=== PATIENT | female | born 1945 | race African-American/Black ===

== ENCOUNTER 2018-06-10 16:06 | Inpatient (IN) ==
--- NOTE | 2018-06-10 16:32 | ED ---
HPI General Chief Complaint: Shortness of Breath/Dyspnea Stated Complaint: SOB x 5 days Time Seen by Provider: 06/10/18 16:24 History of Present Illness 73-year-old woman sent over from her primary care physician's office with history of progressive shortness of breath over the past 5 days, and was found to be significantly hypoxemic at 83% oxygen saturation at the office. She was given 2 rounds of nebulized albuterol, with modest temporary improvement, and with the addition of supplemental oxygen, was able to obtain oxygen saturation of 97%. However once patient was taken off of oxygen, she consistently desaturated to the 89-90% range, at which time they felt that she needed further and more intensive care, and referred her to this emergency department. I spoke with Dr. Stefan Chahal, patient's primary care physician, who gave significant history, with concern for history of possible DVT, but with underlying history of diabetes mellitus, hypertension, past history of asthma, but no acute exacerbations in at least 10 years. Patient is a non-smoker. She has not had any fever chills or diaphoresis. And she has not had any chest pain. On arrival in the emergency department, patient is able to speak fairly well, with short sentences, but appears to have some moderate effort at breathing in any case. She felt that she is more comfortable than before, but also felt like she wished that she could breathe better, but declined offer for immediate nebulized DuoNeb treatment. Related Data Home Medications Medication Instructions Recorded Confirmed Aspirin Low Dose 81 mg PO DAILY 06/10/18 06/10/18 Calcium 600 1 tab PO DAILY 06/10/18 06/10/18 Vitamin B-12 1,000 mcg PO DAILY 06/10/18 06/10/18 ascorbic acid (vitamin C) [Vitamin 1 tab PO DAILY 06/10/18 06/10/18 C] atorvastatin 1 tab PO DAILY 06/10/18 06/10/18 celecoxib 1 cap PO DAILY 06/10/18 06/10/18 losartan 1 tab PO DAILY 06/10/18 06/10/18 metformin 1 tab PO BID 06/10/18 06/10/18 metoprolol succinate 1 tab PO DAILY 06/10/18 06/10/18 multivitamin 1 tab PO DAILY 06/10/18 06/10/18 hospi-0b-rqg-epa-fish oil [[place]-3 1 cap PO DAILY 06/10/18 06/10/18 Fish Oil] omeprazole 1 cap PO DAILY 06/10/18 06/10/18 sertraline 1 tab PO BID 06/10/18 06/10/18 trazodone 1 tab PO HS PRN 06/10/18 06/10/18 zinc 1 tab PO DAILY 06/10/18 06/10/18 Allergies Allergy/AdvReac Type Severity Reaction Status Date / Time doxycycline Allergy Severe RESPIRIATORY Unverified 02/12/17 18:26 ARREST minocycline Allergy Severe RESPIRIATORY Unverified 02/12/17 18:26 ARREST tigecycline Allergy Severe RESPIRIATORY Unverified 02/12/17 18:26 ARREST codeine Allergy Unknown Unverified 02/12/17 18:26 erythromycin base Allergy Unknown Unverified 02/12/17 18:26 Sulfa (Sulfonamide Allergy Unknown Unverified 02/12/17 18:26 Antibiotics) Review of Systems Constitutional Denies body ache(s), Denies chills, Reports fatigue, Denies fever(s), Denies lethargy, Reports malaise and Denies night sweats Cardiovascular Denies chest pain Respiratory Denies hemoptysis, Reports dyspnea and Reports wheezing Gastrointestinal Denies abdominal pain, Denies nausea and Denies vomiting Musculoskeletal Denies myalgias and Denies muscle weakness PMFSH Medical History Medical History Anxiety (Acute) Asthma (Acute) Diabetes (Acute) H/O: hysterectomy (Acute) High cholesterol (Acute) Hypertension (Acute) Insomnia (Acute) Social History Social History Substance History: No History of Abuse Smoking Status: Never smoker How Often Do You Have a Drink Containing Alcohol: Never Immunization History Tetanus Immunization: <5 Years Exam Narrative Exam Narrative: GENERAL: Elderly adult female, mildly tachypneic, speaks full sentences, but still shows some respiratory effort. She is on 4 L of oxygen by nasal cannula, and this gives an oxygen saturation of 90%. Vital signs are stable otherwise. SKIN: Focused skin assessment warm/dry. HEAD: Atraumatic. Normocephalic. EYES: Pupils equal and round. No scleral icterus. No injection or drainage. ENT: No nasal bleeding or discharge. Mucous membranes pink and moist. NECK: Trachea midline. No JVD. CHEST: Nontender, no bony crepitus. CARDIOVASCULAR: Regular rate and rhythm. No murmur appreciated. RESPIRATORY: No accessory muscle use. Moderate respiratory impairment, but few audible wheezes or rhonchi.. Breath sounds equal bilaterally. GASTROINTESTINAL: Abdomen soft, non-tender, nondistended. Hepatic and splenic margins not palpable. MUSCULOSKELETAL: No obvious deformities. No clubbing. No cyanosis. No edema. NEUROLOGICAL: Awake and alert. No obvious cranial nerve deficits. Motor grossly within normal limits. Normal speech. PSYCHIATRIC: Appropriate mood and affect; insight and judgment normal. Course Initial Documented Vital Signs Pulse Rate 82 06/10/18 16:24 Pulse Oximetry 98 06/10/18 16:24 Last Documented Vital Signs Pulse Rate 77 06/10/18 17:55 Respiratory Rate 22 06/10/18 17:55 Blood Pressure 180/91 H 06/10/18 17:55 Pulse Oximetry 98 06/10/18 17:55 Medical Decision Making MDM Narrative Medical decision making narrative: Patient comes in with shortness of breath for several days, with unresponsiveness to outpatient treatment at her primary care physician's office with a couple of rounds of nebulized treatments, showing an initial hypoxemia of approximately 84-85% in the office, improving to the mid 90s after DuoNeb treatments, but gradually declining again afterwards , with resumption of shortness of breath. She was sent for possible evaluation of pulmonary embolism, but this was negative on evaluation here today, but does show right upper lobe and right lower lobe interstitial densities, compatible with an acute pneumonitis, and she also has mild cardiomegaly with a borderline elevated BNP level, with possible fluid retention as well. Patient was given bronchodilator treatment with DuoNeb in the emergency department, as well as initial dose of diuresis, and despite feeling better after these treatments, when she was placed again as a trial on room air, she again promptly desaturates to the 86-88 range. Patient will need hospitalization for continued pulmonary treatment, and empiric antibiotic therapy for likely interstitial pneumonitis or community-acquired pneumonia. Medical Screen Exam Complete: Yes Emergency Medical Condition: Yes Lab Data Result diagrams: 06/10/18 16:40 06/10/18 16:40 Lab Results 06/10/18 06/10/18 06/10/18 Range/Units 16:40 16:40 16:40 CBC w Diff Auto diff final WBC 7.2 (4.0-11.0) th/mm3 RBC 3.41 L (4.00-5.30) mil/mm3 Hgb 10.4 L (11.6-15.3) gm/dL Hct 32.4 L (35.0-46.0) % MCV 95.1 (80.0-100.0) fL MCH 30.4 (27.0-34.0) pg MCHC 32.0 (32.0-36.0) % RDW 14.9 (11.6-17.2) % Plt Count 215 (150-450) th/mm3 MPV 8.4 (7.0-11.0) fL Neut % (Auto) 74.9 H (16.0-70.0) % Lymph % (Auto) 13.0 (9.0-44.0) % [place] % (Auto) 9.8 H (0.0-8.0) % Eos % (Auto) 1.9 (0.0-4.0) % Baso % (Auto) 0.4 (0.0-2.0) % Neut # (Auto) 5.5 (1.8-7.7) th/mm3 Lymph # (Auto) 0.9 L (1.0-4.8) th/mm3 [place] # (Auto) 0.7 (0.0-0.9) th/mm3 Eos # (Auto) 0.1 (0.0-0.4) th/mm3 Baso # (Auto) 0.0 (0.0-0.2) th/mm3 WBC Differential . Differential Comment . D-Dimer Quant (PE/DVT) (0.00-0.50) mg/L FEU Sodium 142 (136-145) meq/L Potassium 3.6 (3.5-5.1) meq/L Chloride 103 (98-107) meq/L Carbon Dioxide 32.8 H (21.0-32.0) meq/L Anion Gap 6 (5-15) meq/L BUN 18 (7-18) mg/dL Creatinine 0.71 (0.50-1.00) mg/dL Estimated GFR Greater than 89 (>89) mL/min Random Glucose 106 (74-106) mg/dL Calcium 8.1 L (8.5-10.1) mg/dL Total Bilirubin 0.5 (0.2-1.0) mg/dL AST 40 H (15-37) U/L ALT 53 (10-53) U/L Alkaline Phosphatase 70 (45-117) U/L Troponin I 0.03 (0.02-0.05) ng/mL B-Natriuretic Peptide 393 H (0-100) pg/mL Total Protein 6.5 (6.4-8.2) g/dL Albumin 3.3 L (3.4-5.0) g/dL 06/10/18 Range/Units 17:00 CBC w Diff WBC (4.0-11.0) th/mm3 RBC (4.00-5.30) mil/mm3 Hgb (11.6-15.3) gm/dL Hct (35.0-46.0) % MCV (80.0-100.0) fL MCH (27.0-34.0) pg MCHC (32.0-36.0) % RDW (11.6-17.2) % Plt Count (150-450) th/mm3 MPV (7.0-11.0) fL Neut % (Auto) (16.0-70.0) % Lymph % (Auto) (9.0-44.0) % [place] % (Auto) (0.0-8.0) % Eos % (Auto) (0.0-4.0) % Baso % (Auto) (0.0-2.0) % Neut # (Auto) (1.8-7.7) th/mm3 Lymph # (Auto) (1.0-4.8) th/mm3 [place] # (Auto) (0.0-0.9) th/mm3 Eos # (Auto) (0.0-0.4) th/mm3 Baso # (Auto) (0.0-0.2) th/mm3 WBC Differential Differential Comment D-Dimer Quant (PE/DVT) 1.04 H (0.00-0.50) mg/L FEU Sodium (136-145) meq/L Potassium (3.5-5.1) meq/L Chloride (98-107) meq/L Carbon Dioxide (21.0-32.0) meq/L Anion Gap (5-15) meq/L BUN (7-18) mg/dL Creatinine (0.50-1.00) mg/dL Estimated GFR (>89) mL/min Random Glucose (74-106) mg/dL Calcium (8.5-10.1) mg/dL Total Bilirubin (0.2-1.0) mg/dL AST (15-37) U/L ALT (10-53) U/L Alkaline Phosphatase (45-117) U/L Troponin I (0.02-0.05) ng/mL B-Natriuretic Peptide (0-100) pg/mL Total Protein (6.4-8.2) g/dL Albumin (3.4-5.0) g/dL Imaging Data Radiologist's impression: Chest X-Ray 06/10/18 16:24 CONCLUSION: Apical lordotic examination with apparent mild cardiomegaly and no definite pulmonary edema. Chest CTA 06/10/18 17:57 CONCLUSION: 1. Scattered groundglass densities likely air trapping. 2. Scattered peripheral parenchymal densities in the right lung could be infectious or inflammatory. 3. No evidence for pulmonary embolism. 4. Mild prominence of the main pulmonary trunk suggests a degree of pulmonary hypertension. 5. Subcentimeter nodules the largest right lower lobe measures 7 mm. Follow-up CT chest in 3 months recommended for stability. ECG Data Attestation: I personally reviewed and interpreted this ECG as follows: Interpretation: EKG taken at 1634 hrs. Baseline rhythm is sinus at 74 bpm, no ectopy is noted. QRS morphology is unremarkable, possibly borderline nonspecific intraventricular conduction delay, QRS interval is [address] segments are generally flat, and T waves are also generally flat, but there are no acute elevations or depressions compatible with myocardial infarction or ischemia, and no T wave inversions. IL interval is normal at 141 ms, QT interval is normal at 388 ms corrected. There are peaked P waves, suggestive of left atrial enlargement. This is an abnormal but generally nonspecific tracing. Discharge Plan Discharge Order Discharge Orders: ED Use Only Admit Order (Routine); Ordered 06/10/18 Ordered By: Mack Goldstein Physicians Team ED Provider: Mack Goldstein Primary Care Provider: Vitor Schultz Rxs /Orders / Referrals /Forms Prescriptions: No Action Aspirin Low Dose 81 mg PO DAILY RF: 0 celecoxib 200 mg Capsule 1 cap PO DAILY RF: 0 trazodone 50 mg Tablet 1 tab PO HS PRN (Reason: Insomnia) RF: 0 metoprolol succinate 50 mg Tablet Extended Release 24 Hr 1 tab PO DAILY RF: 0 ascorbic acid (vitamin C) [Vitamin C] 500 mg Tablet 1 tab PO DAILY RF: 0 metformin 1,000 mg Tablet 1 tab PO BID RF: 0 losartan 25 mg Tablet 1 tab PO DAILY RF: 0 sertraline 25 mg Tablet 1 tab PO BID RF: 0 omeprazole 20 mg Capsule,Delayed Release(Dr/Ec) 1 cap PO DAILY RF: 0 zinc 50 mg Tablet 1 tab PO DAILY RF: 0 xhoac-0q-rfp-epa-fish oil [[place]-3 Fish Oil] 300-1,000 mg Capsule 1 cap PO DAILY RF: 0 Calcium 600 1 tab PO DAILY RF: 0 Vitamin B-12 1,000 mcg PO DAILY RF: 0 atorvastatin 1 tab PO DAILY RF: 0 multivitamin 1 tab PO DAILY RF: 0 Discharge Interventions Interventions: Vital Signs Last Done: 06/10/18 19:43 Status ED Status: With Doctor
[2018-06-10 16:53] LABS: Baso % (Auto) 0.4 % (0.0-2.0); Eos # (Auto) 0.1 th/mm3 (0.0-0.4); Eos % (Auto) 1.9 % (0.0-4.0); Hematocrit 32.4 % (35.0-46.0); Hemoglobin 10.4 gm/dL (11.6-15.3); Lymph # (Auto) 0.9 th/mm3 (1.0-4.8); Mean Corpuscular Hemoglobin 30.4 pg (27.0-34.0); Mean Corpuscular Volume 95.1 fL (80.0-100.0); Mean Platelet Volume 8.4 fL (7.0-11.0); Mono # (Auto) 0.7 th/mm3 (0.0-0.9); Mono % (Auto) 9.8 % (0.0-8.0); Neut # (Auto) 5.5 th/mm3 (1.8-7.7); Neut % (Auto) 74.9 % (16.0-70.0); Platelet Count 215 th/mm3 (150-450); Red Blood Count 3.41 mil/mm3 (4.00-5.30); Red Cell Distribution Width 14.9 % (11.6-17.2); White Blood Count 7.2 th/mm3 (4.0-11.0)
[2018-06-10 16:58] LABS: Chloride 103 meq/L (98-107); Potassium 3.6 meq/L (3.5-5.1); Sodium 142 meq/L (136-145)
[2018-06-10 17:01] LABS: Albumin 3.3 g/dL (3.4-5.0); Anion Gap 6 meq/L (5-15); Blood Urea Nitrogen 18 mg/dL (7-18); Calcium 8.1 mg/dL (8.5-10.1); Carbon Dioxide 32.8 meq/L (21.0-32.0); Glucose,Random 106 mg/dL (74-106)
[2018-06-10 17:04] LABS: Alanine Aminotransferase 53 U/L (10-53); Aspartate Aminotransferase 40 U/L (15-37); Glomerular Filtration Rate Greater Than 89 mL/min (>89)
--- NOTE | 2018-06-10 17:05 | XR ---
EXAM DATE: 06/10/2018 5:00 PM EST AGE/SEX: 73 years / Female INDICATIONS: Shortness of breath. CLINICAL DATA: This is the patient's initial encounter. Patient reports that signs and symptoms have been present for 4 - 6 days and indicates a pain score of 1/10. MEDICAL/SURGICAL HISTORY: None. None. COMPARISON: No prior exams available for comparison. FINDINGS: A single AP view of the chest demonstrates the lungs to be symmetrically aerated without evidence of mass, infiltrate or effusion. The heart size appears mildly prominent. There is no perihilar edema. This study is apical lordotic in technique. Osseous structures are intact. CONCLUSION: Apical lordotic examination with apparent mild cardiomegaly and no definite pulmonary edema. Electronically signed by: Portillo Vera MD 06/10/2018 5:04 PM EST
[2018-06-10 17:06] LABS: Total Protein 6.5 g/dL (6.4-8.2)
[2018-06-10 17:07] LABS: Alkaline Phosphatase 70 U/L (45-117)
[2018-06-10 17:09] LABS: Troponin I 0.03 ng/mL (0.02-0.05)
--- NOTE | 2018-06-10 18:50 | CT ---
EXAM DATE: 06/10/2018 6:38 PM EST AGE/SEX: 73 years / Female INDICATIONS: Short of breath. CLINICAL DATA: This is the patient's initial encounter. Patient reports that signs and symptoms have been present for 4 - 6 days and indicates a pain score of 0/10. MEDICAL/SURGICAL HISTORY: Diabetes. Hypercholesterolemia. Hypertension. Hysterectomy. RADIATION DOSE: 21.61 CTDI (mGy) ; Patient body habitus COMPARISON: No prior exams available for comparison. TECHNIQUE: Volumetric scanning was performed using a multi-row detector CT scanner during bolus infu nicol of 65 ml Omnipaque 350 (iohexol) nonionic water-soluble contrast as a single exam dose. The yousif a was post processed with a variety of visualization algorithms including full volume maximum intensi ty projection and sliding thin slab reformation. Using automated exposure control and adjustment of t he mA and/or kV according to patient size, radiation dose was kept as low as reasonably achievable to obtain optimal diagnostic quality images. DICOM format image data is available electronically for r eview and comparison. FINDINGS: Pulmonary Arteries: No filling defects are seen in the pulmonary arteries out to the subsegmental ve ssels. The left and right pulmonary arteries are normal in diameter. Pulmonary trunk is prominent. Lung: Scattered groundglass densities and patchy peripheral densities are seen in the right upper lo be and right lower lobe. Discoid atelectasis left lower lobe. There are some nodular patchy densities including nodule in the right lower lobe measuring 7 mm.. Effusion: None. Mediastinum: No evidence of mediastinal or hilar adenopathy. Other: The axilla is unremarkable. CONCLUSION: 1. Scattered groundglass densities likely air trapping. 2. Scattered peripheral parenchymal densities in the right lung could be infectious or inflammatory. 3. No evidence for pulmonary embolism. 4. Mild prominence of the main pulmonary trunk suggests a degree of pulmonary hypertension. 5. Subcentimeter nodules the largest right lower lobe measures 7 mm. Follow-up CT chest in 3 months recommended for stability. Electronically signed by: Herb Ashley MD 06/10/2018 6:48 PM EST
[2018-06-10] MEDS ORDERED: Azithromycin 250 MG Tablet PO ONE (19:45)
[2018-06-10] MEDS ORDERED: Dextrose 50% in Water 50 ML Vial IV.PUSH PRN (20:27)
[2018-06-10] MEDS ORDERED: ALPRAZolam 0.25 MG Tablet PO PRN (21:00)
[2018-06-10] MEDS: Insulin NovoLOG Aspart Correctional Sugar Inj SQ SCH (21:31)
[2018-06-10] MEDS ORDERED: Bisacodyl 10 MG Supp RECTAL PRN (22:00)
[2018-06-10 22:03] LABS: Troponin I 0.02 ng/mL (0.02-0.05)
[2018-06-10] MEDS: Senna/Docusate Sodium 8.6/50 MG Tablet PO SCH (22:46)
[2018-06-10] MEDS: Enoxaparin Inj 40 MG/0.4 ML Syringe SQ SCH (22:46)
[2018-06-11 04:59] LABS: Troponin I 0.02 ng/mL (0.02-0.05)
[2018-06-11 06:55] LABS: Chloride 100 meq/L (98-107); Potassium 3.3 meq/L (3.5-5.1); Sodium 141 meq/L (136-145)
[2018-06-11 07:03] LABS: Albumin 3.6 g/dL (3.4-5.0); Anion Gap 6 meq/L (5-15); Carbon Dioxide 34.9 meq/L (21.0-32.0); Glucose,Random 113 mg/dL (74-106); Magnesium 1.7 mg/dL (1.5-2.5)
[2018-06-11 07:04] LABS: Blood Urea Nitrogen 15 mg/dL (7-18)
[2018-06-11 07:06] LABS: Aspartate Aminotransferase 33 U/L (15-37)
[2018-06-11 07:07] LABS: Alanine Aminotransferase 51 U/L (10-53); Glomerular Filtration Rate 86 mL/min (>89); Total Protein 7.1 g/dL (6.4-8.2)
[2018-06-11 07:08] LABS: Alkaline Phosphatase 74 U/L (45-117)
--- NOTE | 2018-06-11 07:53 | P.CONCA ---
History of Present Illness Service: cardiology Primary Care Provider: Vitor Schultz MD History of Present Illness: 73-year-old female with HTN, DM who was sent from PCPs office for hypoxia. The patient presented to her primary care doctor's office yesterday with 5 days of shortness of breath and dry cough. She is found to be significantly hypoxic with improvement with duo nebs and O2. She was sent to the ED for further evaluation. Chest CT showed no PE, but infectious versus inflammatory changes in the right lung. The patient reports occasional heart racing sensation and near syncope sensation associated with shortness of breath, no passing out. She denies any chest pain. Approximately 2300 the patient had a 7 beat run of nonsustained V. tach. Otherwise telemetry monitoring shows frequent PVCs in singles and one episode of trigeminy. She is on metoprolol at home for blood pressure. Overall she reports her breathing is improving with treatment. Review of Systems All other systems reviewed negative except as stated in HPI [facility] - History History Provided By: Patient, Medical Record - Medical History Medical History: Medical History (Last Updated 06/10/18 @ 16:25 by Leana Francois RN) Anxiety Asthma Diabetes H/O: hysterectomy High cholesterol Hypertension Insomnia - Tobacco History Second Hand Smoke Exposure: No Smoking Status: Never smoker - Alcohol History How Often Do You Have a Drink Containing Alcohol: Never - Substance Use History Substance History: No History of Abuse - Immunization History Tetanus Immunization: <5 Years Medications and Allergies Allergies Allergy/AdvReac Type Severity Reaction Status Date / Time doxycycline Allergy Severe RESPIRIATORY Verified 06/10/18 20:12 ARREST minocycline Allergy Severe RESPIRIATORY Verified 06/10/18 20:12 ARREST tigecycline Allergy Severe RESPIRIATORY Verified 06/10/18 20:12 ARREST codeine Allergy Unknown Rash Verified 06/10/18 20:12 erythromycin base Allergy Unknown Rash Verified 06/10/18 20:12 Sulfa (Sulfonamide Allergy Unknown Rash Verified 06/10/18 20:12 Antibiotics) Home Medications Medication Instructions Recorded Confirmed Type Aspirin Low Dose 81 mg PO DAILY 06/10/18 06/10/18 History Calcium 600 1 tab PO DAILY 06/10/18 06/10/18 History Vitamin B-12 1,000 mcg PO DAILY 06/10/18 06/10/18 History ascorbic acid (vitamin C) [Vitamin 1 tab PO DAILY 06/10/18 06/10/18 History C] atorvastatin 1 tab PO DAILY 06/10/18 06/10/18 History celecoxib 1 cap PO DAILY 06/10/18 06/10/18 History losartan 1 tab PO DAILY 06/10/18 06/10/18 History metformin 1 tab PO BID 06/10/18 06/10/18 History metoprolol succinate 1 tab PO DAILY 06/10/18 06/10/18 History multivitamin 1 tab PO DAILY 06/10/18 06/10/18 History gaezi-0b-qyo-epa-fish oil [[place]-3 1 cap PO DAILY 06/10/18 06/10/18 History Fish Oil] omeprazole 1 cap PO DAILY 06/10/18 06/10/18 History sertraline 1 tab PO BID 06/10/18 06/10/18 History trazodone 1 tab PO HS PRN 06/10/18 06/10/18 History zinc 1 tab PO DAILY 06/10/18 06/10/18 History Active Medications: Active Medications Acetaminophen (Tylenol) 650 mg PO Q4H PRN PRN Reason: Temp > 100.4 Al Hydroxide/Mg Hydroxide (Milk Of Murali Tripathi) 30 ml PO Q12H PRN PRN Reason: Mild Constipation Albuterol (Albuterol Neb (Anjelica)) 2.5 mg NEB Q6HR NEB ANJELICA Last Admin: 06/11/18 02:48 Dose: 2.5 mg Alprazolam (Xanax) 0.25 mg PO ONCE PRN PRN Reason: ANXIETY AND/OR INSOMNIA Stop: 06/11/18 23:59 Bisacodyl (Dulcolax Supp) 10 mg RECTAL DAILY PRN PRN Reason: SEVERE CONSITIPATION Dextrose (D50w Vial) 50 ml IV.PUSH UNSCH PRN PRN Reason: PER HYPOGLYCEMIA PROTOCOL Enalaprilat (Vasotec Inj) 1.25 mg IV.PUSH Q6H PRN PRN Reason: HYPERTENSION Enoxaparin Sodium (Lovenox Inj) 40 mg SQ Q24H ANJELICA Last Admin: 06/10/18 22:46 Dose: 40 mg Glucagon (Glucagon Inj) 1 mg OTHER PRN PRN PRN Reason: for Hypoglycemia Protocol Insulin Aspart (Novolog Insulin [employer] Sugar Inj) 0 unit SQ ACHS ANJELICA; Protocol Last Admin: 06/10/18 21:31 Dose: 1 unit Lactulose (Lactulose Liq) 30 ml PO DAILY PRN PRN Reason: SEVERE CONSITIPATION Ondansetron HCl (Zofran Inj) 4 mg IV.PUSH Q6H PRN PRN Reason: NAUSEA OR VOMITING Last Admin: 06/11/18 04:02 Dose: 4 mg Senna/Docusate Sodium (Yazmin-Colace) 1 tab PO BID [facility] Last Admin: 06/10/18 22:46 Dose: 1 tab Sennosides (Senokot) 17.2 mg PO Q12H PRN PRN Reason: Moderate Constipation Sodium Chloride (Ns Flush) 2 ml IV.FLUSH PRN PRN PRN Reason: FLUSH AFTER USING IV ACCESS Last Admin: 06/11/18 04:02 Dose: 2 ml Sodium Chloride (Ns Flush) 2 ml IV.FLUSH BID [facility] Last Admin: 06/10/18 22:46 Dose: 2 ml Sodium Chloride (Ns Flush) 2 ml IV.FLUSH PRN PRN PRN Reason: FLUSH AFTER USING IV ACCESS Exam Vital signs: Vital Signs 06/10/18 16:24 06/10/18 17:29 06/10/18 17:55 Temperature Pulse Rate 82 81 77 Respiratory Rate 18 22 Blood Pressure 180/91 H Pulse Oximetry 98 98 06/10/18 19:43 06/10/18 21:24 06/10/18 21:30 Temperature Pulse Rate 77 87 Respiratory Rate 18 20 Blood Pressure 175/102 H Pulse Oximetry 98 98 98 06/10/18 21:33 06/10/18 22:25 06/10/18 22:30 Temperature 97.1 F L Pulse Rate 82 79 97 H Respiratory Rate 20 22 Blood Pressure 169/87 H 159/78 H Pulse Oximetry 97 96 06/11/18 00:00 06/11/18 02:48 06/11/18 02:51 Temperature 97.4 F L Pulse Rate 78 81 Respiratory Rate 22 20 Blood Pressure 143/78 H Pulse Oximetry 96 97 06/11/18 04:00 Temperature 96.5 F L Pulse Rate 86 Respiratory Rate 21 Blood Pressure 136/70 Pulse Oximetry 98 Intake & Output 06/10/18 06/11/18 06/11/18 18:59 06:59 18:59 Intake Total 100 / 100 Output Total 900 / 900 Balance -800 / -800 Weight 259 lb 4.218 oz Intake: IV 100 / 100 Rocephin Inj 1,000 MG In NS Inj 100 / 100 100 ML @ 200 mls/hr IV.SIG ONCE ONE Rx#:[id number] Output: Urine 900 / 900 Other: # Voids 3 Date of Last Bowel Movement 06/10/18 Weight On Admission 259 lb 4.218 oz Narrative: GENERAL: Well-developed well-nourished. Obese. In no acute distress. NECK: No carotid bruits. No JVD. CARDIOVASCULAR: Regular rate and rhythm. No murmur appreciated. RESPIRATORY: No accessory muscle use. Clear to auscultation. Breath sounds equal bilaterally. MUSCULOSKELETAL: No clubbing or cyanosis. No edema. NEUROLOGICAL: Awake and alert. Normal speech. Results 06/10/18 16:40 06/11/18 06:05 Cardiac Enzymes 06/10/18 06/10/18 06/10/18 Range/Units 16:40 16:40 21:21 AST 40 H (15-37) U/L Troponin I 0.03 0.02 (0.02-0.05) ng/mL B-Natriuretic Peptide 393 H (0-100) pg/mL 06/11/18 06/11/18 Range/Units 02:45 06:05 AST 33 (15-37) U/L Troponin I 0.02 (0.02-0.05) ng/mL B-Natriuretic Peptide (0-100) pg/mL Coagulation 06/10/18 Range/Units 16:40 B-Natriuretic Peptide 393 H (0-100) pg/mL CBC 06/10/18 Range/Units 16:40 WBC 7.2 (4.0-11.0) th/mm3 RBC 3.41 L (4.00-5.30) mil/mm3 Hgb 10.4 L (11.6-15.3) gm/dL Hct 32.4 L (35.0-46.0) % Plt Count 215 (150-450) th/mm3 Neut # (Auto) 5.5 (1.8-7.7) th/mm3 Lymph # (Auto) 0.9 L (1.0-4.8) th/mm3 [place] # (Auto) 0.7 (0.0-0.9) th/mm3 Eos # (Auto) 0.1 (0.0-0.4) th/mm3 Baso # (Auto) 0.0 (0.0-0.2) th/mm3 Comprehensive Metabolic Panel 06/10/18 06/11/18 Range/Units 16:40 06:05 Sodium 142 141 (136-145) meq/L Potassium 3.6 3.3 L (3.5-5.1) meq/L Chloride 103 100 (98-107) meq/L Carbon Dioxide 32.8 H 34.9 H (21.0-32.0) meq/L BUN 18 15 (7-18) mg/dL Creatinine 0.71 0.80 (0.50-1.00) mg/dL Calcium 8.1 L 8.0 L (8.5-10.1) mg/dL AST 40 H 33 (15-37) U/L ALT 53 51 (10-53) U/L Alkaline Phosphatase 70 74 (45-117) U/L Total Protein 6.5 7.1 D (6.4-8.2) g/dL Albumin 3.3 L 3.6 (3.4-5.0) g/dL Intake and Output 06/10/18 06/11/18 06/11/18 22:59 06:59 14:59 Intake Total 100 / 100 Output Total 900 / 900 Balance -800 / -800 Intake: IV 100 / 100 Rocephin Inj 1,000 MG In NS Inj 100 / 100 100 ML @ 200 mls/hr IV.SIG ONCE ONE Rx#:[id number] Output: Urine 900 / 900 Other: # Voids 3 Date of Last Bowel Movement 06/10/18 Weight 259 lb 4.218 oz Weight On Admission 259 lb 4.218 oz - Imaging and Cardiology Imaging: Impressions Chest X-Ray 06/10/18 16:24 CONCLUSION: Apical lordotic examination with apparent mild cardiomegaly and no definite pulmonary edema. Chest CTA 06/10/18 17:57 CONCLUSION: 1. Scattered groundglass densities likely air trapping. 2. Scattered peripheral parenchymal densities in the right lung could be infectious or inflammatory. 3. No evidence for pulmonary embolism. 4. Mild prominence of the main pulmonary trunk suggests a degree of pulmonary hypertension. 5. Subcentimeter nodules the largest right lower lobe measures 7 mm. Follow-up CT chest in 3 months recommended for stability. Assessment and Plan - Plan 73-year-old female with HTN, DM who was sent from PCPs office for hypoxia. Symptoms and findings consistent with possible viral pneumonia. We are consulted for 7 beats NSVT. NSVT: Likely exacerbated by infection, treat underlying etiology. Continue metoprolol. Check echocardiogram and unless ejection fraction is significantly decreased, could consider Lexiscan as outpatient. Please call with questions. Discussed Condition With: Patient, Dr. Woodson - Attending Attestation 2d echo BB agree with above
[2018-06-11] MEDS: Insulin NovoLOG Aspart Correctional Sugar Inj SQ SCH ×3 (09:09→17:45)
[2018-06-11] MEDS: Senna/Docusate Sodium 8.6/50 MG Tablet PO SCH ×2 (09:13→20:00)
[2018-06-11] MEDS: Acetaminophen 325 MG Tablet PO PRN (09:16)
--- NOTE | 2018-06-11 11:57 | P.HP ---
History of Present Illness Service: medicine Primary Care Physician: Vitor Schultz MD Chief Complaint: sob History of Present Illness: 73 y/o female who went to her PCP's office yesterday for SOB and was sent to the ER due to hypoxia, Pulse oximetry in the office was reported to be 83%. According to the patient she has been doing well until the last 5 days when she started becoming more sob with exertion. Walking ,showering, any movement. She denies any chest pain, does have occasional chest tightness, She states she gets palpitations and these have been a little more frequent lasting several seconds. 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 Currently she has not felt herself wheeze. She did not like the prednisone as it would eventually cause knee pain. She states aprox 10 yrs ago she suddenly did not need the medications so she stopped them. She even was undergoing allergy testing but this was stopped. She denies fever or chills. She has a slight cough which is chronic and not really any worse. She has chronic long standing problems with her sinuses for which she has used flonase for temporary relief. She will use vicks and steam to help open them up. She is a nose breather so when her sinuses flare up she has a more difficult time breathing. She will wake up at night sob but this is chronic and she states has always been this way. Her sinuses are acting up in particular now with pressure and she cannot breathe through her nose. She has developed a bit of sore throat in the last 2-3 days but no nasal congestion. Up until now she has been in her usual state of health. She does say for the last year or so her left foot and ankle will swell but she elevates her leg and it resolves. The only other event of significance has been that in may she flew to [place] for her mother . - Diagnosis (1) Diabetes mellitus type 2 in obese (2) Community acquired pneumonia (3) Asthma with exacerbation (4) Hypoxemia (5) Pulmonary nodules Review of Systems All other systems reviewed negative except as stated in HPI PMFSH - History History Provided By: Patient, Medical Record - Medical History Medical History: Medical History (Last Updated 06/10/18 @ 16:25 by Leana Francois RN) Anxiety Asthma Diabetes H/O: hysterectomy High cholesterol Hypertension Insomnia - Social History I have reviewed the patient's Social History: Yes - Tobacco History Second Hand Smoke Exposure: No Smoking Status: Never smoker - Alcohol History How Often Do You Have a Drink Containing Alcohol: Never - Substance Use History Substance History: No History of Abuse - Travel History History of Recent Travel: Yes Recent Travel Out of the Country Within the Last 8 Weeks: Yes - Immunization History Tetanus Immunization: <5 Years Medications and Allergies Active Medications: Active Medications Acetaminophen (Tylenol) 650 mg PO Q4H PRN PRN Reason: Temp > 100.4 Last Admin: 06/11/18 09:16 Dose: 650 mg Al Hydroxide/Mg Hydroxide (Milk Of Magnesia Liq) 30 ml PO Q12H PRN PRN Reason: Mild Constipation Albuterol (Albuterol Neb (Anjelica)) 2.5 mg NEB Q6HR NEB ANJELICA Last Admin: 06/11/18 09:55 Dose: 2.5 mg Alprazolam (Xanax) 0.25 mg PO ONCE PRN PRN Reason: ANXIETY AND/OR INSOMNIA Stop: 06/11/18 23:59 Last Admin: 06/11/18 09:13 Dose: 0.25 mg Bisacodyl (Dulcolax Supp) 10 mg RECTAL DAILY PRN PRN Reason: SEVERE CONSITIPATION Dextrose (D50w Vial) 50 ml IV.PUSH UNSCH PRN PRN Reason: PER HYPOGLYCEMIA PROTOCOL Enalaprilat (Vasotec Inj) 1.25 mg IV.PUSH Q6H PRN PRN Reason: HYPERTENSION Enoxaparin Sodium (Lovenox Inj) 40 mg SQ Q24H [facility] Last Admin: 06/10/18 22:46 Dose: 40 mg Glucagon (Glucagon Inj) 1 mg OTHER PRN PRN PRN Reason: for Hypoglycemia Protocol Insulin Aspart (Novolog Insulin Correctional Sugar Inj) 0 unit SQ ACHS [facility]; Protocol Last Admin: 06/11/18 09:09 Dose: Not Given Lactulose (Lactulose Liq) 30 ml PO DAILY PRN PRN Reason: SEVERE CONSITIPATION Metoprolol Succinate (Toprol Xl) 50 mg PO DAILY ANJELICA Last Admin: 06/11/18 09:15 Dose: 50 mg Ondansetron HCl (Zofran Inj) 4 mg IV.PUSH Q6H PRN PRN Reason: NAUSEA OR VOMITING Last Admin: 06/11/18 04:02 Dose: 4 mg Senna/Docusate Sodium (Yazmin-Colace) 1 tab PO BID [facility] Last Admin: 06/11/18 09:13 Dose: 1 tab Sennosides (Senokot) 17.2 mg PO Q12H PRN PRN Reason: Moderate Constipation Sodium Chloride (Ns Flush) 2 ml IV.FLUSH PRN PRN PRN Reason: FLUSH AFTER USING IV ACCESS Last Admin: 06/11/18 04:02 Dose: 2 ml Sodium Chloride (Ns Flush) 2 ml IV.FLUSH BID [facility] Last Admin: 06/11/18 09:13 Dose: Not Given Sodium Chloride (Ns Flush) 2 ml IV.FLUSH PRN PRN PRN Reason: FLUSH AFTER USING IV ACCESS Allergies Allergy/AdvReac Type Severity Reaction Status Date / Time doxycycline Allergy Severe RESPIRIATORY Verified 06/10/18 20:12 ARREST minocycline Allergy Severe RESPIRIATORY Verified 06/10/18 20:12 ARREST tigecycline Allergy Severe RESPIRIATORY Verified 06/10/18 20:12 ARREST codeine Allergy Unknown Rash Verified 06/10/18 20:12 erythromycin base Allergy Unknown Rash Verified 06/10/18 20:12 Sulfa (Sulfonamide Allergy Unknown Rash Verified 06/10/18 20:12 Antibiotics) Home Medications Medication Instructions Recorded Confirmed Type Aspirin Low Dose 81 mg PO DAILY 06/10/18 06/10/18 History Calcium 600 1 tab PO DAILY 06/10/18 06/10/18 History Vitamin B-12 1,000 mcg PO DAILY 06/10/18 06/10/18 History ascorbic acid (vitamin C) [Vitamin 1 tab PO DAILY 06/10/18 06/10/18 History C] atorvastatin 1 tab PO DAILY 06/10/18 06/10/18 History celecoxib 1 cap PO DAILY 06/10/18 06/10/18 History losartan 1 tab PO DAILY 06/10/18 06/10/18 History metformin 1 tab PO BID 06/10/18 06/10/18 History metoprolol succinate 1 tab PO DAILY 06/10/18 06/10/18 History multivitamin 1 tab PO DAILY 06/10/18 06/10/18 History [id number] oil [[place]-3 1 cap PO DAILY 06/10/18 06/10/18 History Fish Oil] omeprazole 1 cap PO DAILY 06/10/18 06/10/18 History sertraline 1 tab PO BID 06/10/18 06/10/18 History trazodone 1 tab PO HS PRN 06/10/18 06/10/18 History zinc 1 tab PO DAILY 06/10/18 06/10/18 History Exam Vital signs: Vital Signs 06/10/18 16:24 06/10/18 17:29 06/10/18 17:55 Temperature Pulse Rate 82 81 77 Respiratory Rate 18 22 Blood Pressure 180/91 H Pulse Oximetry 98 98 06/10/18 19:43 06/10/18 21:24 06/10/18 21:30 Temperature Pulse Rate 77 87 Respiratory Rate 18 20 Blood Pressure 175/102 H Pulse Oximetry 98 98 98 06/10/18 21:33 06/10/18 22:25 06/10/18 22:30 Temperature 97.1 F L Pulse Rate 82 79 97 H Respiratory Rate 20 22 Blood Pressure 169/87 H 159/78 H Pulse Oximetry 97 96 06/11/18 00:00 06/11/18 02:48 06/11/18 02:51 Temperature 97.4 F L Pulse Rate 78 81 Respiratory Rate 22 20 Blood Pressure 143/78 H Pulse Oximetry 96 97 06/11/18 04:00 06/11/18 08:00 06/11/18 09:57 Temperature 96.5 F L 98.0 F Pulse Rate 86 91 H 89 Respiratory Rate 21 22 24 Blood Pressure 136/70 113/57 L Pulse Oximetry 98 92 L 06/11/18 09:58 Temperature Pulse Rate Respiratory Rate Blood Pressure Pulse Oximetry 95 Intake & Output 06/10/18 06/11/18 06/11/18 18:59 06:59 18:59 Intake Total 100 / 100 100 / 100 Output Total 900 / 900 Balance -800 / -800 100 / 100 Weight 117.6 kg Intake: IV 100 / 100 Rocephin Inj 1,000 MG In NS Inj 100 / 100 100 ML @ 200 mls/hr IV.SIG ONCE ONE Rx#:[id number] Oral 100 / 100 Output: Urine 900 / 900 Other: # Voids 3 Date of Last Bowel Movement 06/10/18 Weight On Admission 117.6 kg - Constitutional no acute distress, morbidly obese - Routine HEENT Exam Head: Present: normocephalic Eye: Present: EOMI ENT: Present: mucous membranes moist, oropharynx clear - Routine Neck Exam Comments: thick - Routine Respiratory Exam Present: decreased breath sounds, CTA bilaterally Comments: no wheezes - Routine Cardiovascular Exam Present: RRR, S1, S2 - Routine Abdominal Exam Present: soft, normoactive bowel sounds - Routine Extremities Exam Present: full ROM Comments: no edema - Routine Skin Exam Present: erythema, warm - Routine Neurological Exam Present: alert, oriented X3, normal speech Results - Labs CBC & Chem 7: 06/10/18 16:40 06/11/18 06:05 Labs: Laboratory Results - last 24 hr 06/10/18 06/10/18 06/10/18 16:40 16:40 16:40 CBC w Diff Auto diff final WBC 7.2 RBC 3.41 L Hgb 10.4 L Hct 32.4 L MCV 95.1 MCH 30.4 MCHC 32.0 RDW 14.9 Plt Count 215 MPV 8.4 Neut % (Auto) 74.9 H Lymph % (Auto) 13.0 [place] % (Auto) 9.8 H Eos % (Auto) 1.9 Baso % (Auto) 0.4 Neut # (Auto) 5.5 Lymph # (Auto) 0.9 L [place] # (Auto) 0.7 Eos # (Auto) 0.1 Baso # (Auto) 0.0 WBC Differential . Differential Comment . D-Dimer Quant (PE/DVT) Sodium 142 Potassium 3.6 Chloride 103 Carbon Dioxide 32.8 H Anion Gap 6 BUN 18 Creatinine 0.71 Estimated GFR Greater than 89 POC Glucose Random Glucose 106 Calcium 8.1 L Magnesium Total Bilirubin 0.5 AST 40 H ALT 53 Alkaline Phosphatase 70 Total Creatine Kinase Troponin I 0.03 B-Natriuretic Peptide 393 H Total Protein 6.5 Albumin 3.3 L 06/10/18 06/10/18 06/10/18 17:00 21:21 21:24 CBC w Diff WBC RBC Hgb Hct MCV MCH MCHC RDW Plt Count MPV Neut % (Auto) Lymph % (Auto) [place] % (Auto) Eos % (Auto) Baso % (Auto) Neut # (Auto) Lymph # (Auto) [place] # (Auto) Eos # (Auto) Baso # (Auto) WBC Differential Differential Comment D-Dimer Quant (PE/DVT) 1.04 H Sodium Potassium Chloride Carbon Dioxide Anion Gap BUN Creatinine Estimated GFR POC Glucose 157 H Random Glucose Calcium Magnesium Total Bilirubin AST ALT Alkaline Phosphatase Total Creatine Kinase 100 Troponin I 0.02 B-Natriuretic Peptide Total Protein Albumin 06/11/18 06/11/18 02:45 06:05 CBC w Diff WBC RBC Hgb Hct MCV MCH MCHC RDW Plt Count MPV Neut % (Auto) Lymph % (Auto) [place] % (Auto) Eos % (Auto) Baso % (Auto) Neut # (Auto) Lymph # (Auto) [place] # (Auto) Eos # (Auto) Baso # (Auto) WBC Differential Differential Comment D-Dimer Quant (PE/DVT) Sodium 141 Potassium 3.3 L Chloride 100 Carbon Dioxide 34.9 H Anion Gap 6 BUN 15 Creatinine 0.80 Estimated GFR 86 L POC Glucose Random Glucose 113 H Calcium 8.0 L Magnesium 1.7 Total Bilirubin 0.7 AST 33 ALT 51 Alkaline Phosphatase 74 Total Creatine Kinase 90 Troponin I 0.02 B-Natriuretic Peptide Total Protein 7.1 D Albumin 3.6 - Imaging Impressions Chest X-Ray 06/10/18 16:24 CONCLUSION: Apical lordotic examination with apparent mild cardiomegaly and no definite pulmonary edema. Chest CTA 06/10/18 17:57 CONCLUSION: 1. Scattered groundglass densities likely air trapping. 2. Scattered peripheral parenchymal densities in the right lung could be infectious or inflammatory. 3. No evidence for pulmonary embolism. 4. Mild prominence of the main pulmonary trunk suggests a degree of pulmonary hypertension. 5. Subcentimeter nodules the largest right lower lobe measures 7 mm. Follow-up CT chest in 3 months recommended for stability. Caprini VTE Risk Assessment Caprini VTE Risk Assessment: Moderate/High Risk (score >= 2) Caprini Risk Assessment Model: Point Value = 1 Point Value = 2 Point Value = 3 Point Value = 5 Age 41-60 Minor surgery BMI > 25 kg/m2 Swollen legs Varicose veins or History of unexplained or recurrent spontaneous Oral contraceptives or hormone replacement Sepsis (< 1 month) Serious lung disease, including pneumonia (< 1 month) Abnormal pulmonary function Acute myocardial infarction Congestive heart failure (< 1 month) History of inflammatory bowel disease Medical patient at bed rest Age 61-74 Arthroscopic surgery Major open surgery (> 45 min) Laparoscopic surgery (> 45 min) Malignancy Confined to bed (> 72 hours) Immobilizing plaster cast Central venous access Age >= 75 History of VTE Family history of VTE Factor V Leiden Prothrombin [id number] Lupus anticoagulant Anticardiolipin antibodies Elevated serum homocysteine Heparin-induced thrombocytopenia Other congenital or acquired thrombophilia Stroke (< 1 month) Elective arthroplasty Hip, pelvis, or leg fracture Acute spinal cord injury (< 1 month) Prophylaxis Regimen: Total Risk Factor Score Risk Level Prophylaxis Regimen 0-1 Low Early ambulation 2 Moderate Order ONE of the following: *Sequential Compression Device (SCD) *Heparin 5000 units SQ BID 3-4 Higher Order ONE of the following medications: *Heparin 5000 units SQ TID *Enoxaparin/Lovenox 40 mg SQ daily (WT < 150 kg, CrCl > 30 mL/min) *Enoxaparin/Lovenox 30 mg SQ daily (WT < 150 kg, CrCl > 10-29 mL/min) *Enoxaparin/Lovenox 30 mg SQ BID (WT < 150 kg, CrCl > 30 mL/min) AND/OR *Sequential Compression Device (SCD) 5 or more Highest Order ONE of the following medications: *Heparin 5000 units SQ TID (Preferred with Epidurals) *Enoxaparin/Lovenox 40 mg SQ daily (WT < 150 kg, CrCl > 30 mL/min) *Enoxaparin/Lovenox 30 mg SQ daily (WT < 150 kg, CrCl > 10-29 mL/min) *Enoxaparin/Lovenox 30 mg SQ BID (WT < 150 kg, CrCl > 30 mL/min) AND *Sequential Compression Device (SCD) Assessment and Plan - Assessment (1) Diabetes mellitus type 2 in obese Code(s): E11.69 - Type 2 diabetes mellitus with other specified complication; E66.9 - Obesity, unspecified Status: Chronic Plan: will cover with sliding scale until metformin resumed, diabetic diet (2) Community acquired pneumonia Code(s): J18.9 - Pneumonia, unspecified organism Status: Acute Plan: cta showed inflammatory vs infectious changes will cover with antibiotics (3) Asthma with exacerbation Code(s): J45.901 - Unspecified asthma with (acute) exacerbation Status: Acute Plan: has hx of asthma in the past she states the nebulizers have subjectively helped her breathing, will cont (4) Hypoxemia Code(s): R09.02 - Hypoxemia Status: Acute Plan: this may be multifactorial, she was given lasix in the ED and diuresed aprox 1900 cc per the ER nurse last night, she had a run of vtach and has been seen by cardiology who agree with the echo ordered (result pending) I supect she has TASHA as well as sinus issues. Will order ct scan of her sinuses while in house, she likley would benefit from sleep studies as outpatient. (5) Pulmonary nodules Code(s): R91.8 - Other nonspecific abnormal finding of lung field Status: Acute Plan: picked up on cta will need repeat ct as outpatient in 3 months
[2018-06-11] MEDS ORDERED: traZODone 50 MG Tablet PO PRN (12:01)
--- NOTE | 2018-06-11 13:44 | ECHRPT ---
Indication: SOB CONCLUSIONS The left ventricular systolic function is low normal with an estimated ejection fraction in the rang e of 50- 55%. Normal left ventricular size. Mild concentric left ventricular hypertrophy. No regional wall motion abnormalities are present. Trace mitral valve regurgitation. The pulmonary valve is not well visualized. BP: / HR: Rhythm: MEASUREMENTS (Male / Female) Normal Values Technical Quality: 2D ECHO LV Diastolic Diameter PLAX 5.0 cm 4.2 - 5.9 / 3.9 - 5.3 cm LV Systolic Diameter PLAX 4.1 cm IVS Diastolic Thickness 1.3 cm 0.6 - 1.0 / 0.6 - 0.9 cm LVPW Diastolic Thickness 1.4 cm 0.6 - 1.0 / 0.6 - 0.9 cm LV Relative Wall Thickness 0.5 LVOT Diameter 1.9 cm LA Systolic Diameter LX 3.6 cm 3.0 - 4.0 / 2.7 - 3.8 cm LV Ejection Fraction MOD 4C 43.1 % LV Ejection Fraction 4C AL 45.6 % M-MODE Aortic Root Diameter MM 2.6 cm LA Systolic Diameter MM 3.6 cm LA Ao Ratio MM 1.4 AV Cusp Separation MM 2.3 cm DOPPLER AV Peak Velocity 145.0 cm/s AV Peak Gradient 8.4 mmHg LVOT Peak Velocity 84.9 cm/s LVOT Peak Gradient 2.9 mmHg AV Area Cont Eq pk 1.7 cm MV Area PHT 4.2 cm Mitral E Point Velocity 93.3 cm/s Mitral A Point Velocity 82.4 cm/s Mitral E to A Ratio 1.1 LV E' Lateral Velocity 7.5 cm/s Mitral E to LV E' Lateral Ratio 12.4 LV E' Septal Velocity 5.9 cm/s Mitral E to LV E' Septal Ratio 15.9 PV Peak Velocity 78.7 cm/s PV Peak Gradient 2.5 mmHg FINDINGS LEFT VENTRICLE The left ventricular systolic function is low normal with an estimated ejection fraction in the rang e of 50- 55%. Normal left ventricular size. Mild concentric left ventricular hypertrophy. No regional wall motion abnormalities are present. RIGHT VENTRICLE Normal right ventricular size and systolic function. LEFT ATRIUM The left atrial size is normal. RIGHT ATRIUM The right atrial size is normal. ATRIAL SEPTUM Normal atrial septal thickness without atrial level shunting by limited color doppler interrogation. AORTA The aortic root and proximal ascending aorta are normal in size on limited imaging. MITRAL VALVE Structurally normal mitral valve. Trace mitral valve regurgitation. AORTIC VALVE Trileaflet aortic valve. No aortic valve stenosis or regurgitation. TRICUSPID VALVE Structurally normal tricuspid valve. No tricuspid valve stenosis or regurgitation. PULMONARY VALVE The pulmonary valve is not well visualized. VESSELS The inferior vena cava is normal in size. PERICARDIUM No pericardial effusion. Sarmad Woodson MD, FACC (Electronically Signed) Final Date:11 June 2018 13:43
--- NOTE | 2018-06-11 14:19 | CT ---
EXAM DATE: 06/11/2018 2:15 PM EST AGE/SEX: 73 years / Female INDICATIONS: Sinus congestion. CLINICAL DATA: This is the patient's initial encounter. Patient reports that signs and symptoms have been present for > 1 year and indicates a pain score of 10/10. MEDICAL/SURGICAL HISTORY: Asthma. Diabetes. Hypertension. Hysterectomy. RADIATION DOSE: 25.14 CTDI (mGy) COMPARISON: No prior exams available for comparison. TECHNIQUE: Contiguous axial thin-section CT images of the paranasal sinuses were performed. Using au tomated exposure control and adjustment of the mA and/or kV according to patient size, radiation dose was kept as low as reasonably achievable to obtain optimal diagnostic quality images. DICOM format image data is available electronically for review and comparison. FINDINGS: No significant sinus disease is identified. The frontal, ethmoid, maxillary and sphenoid sinuses are clear. Nasal septum is midline. Low-density mass is seen within the sella completely evaluated on today's exam. CONCLUSION: 1. No significant sinus disease Electronically signed by: Srinath Gregory MD 06/11/2018 2:18 PM EST
[2018-06-11] MEDS: MethylPREDNISolone Sod Succinate Inj 40 MG/ML Vial IV.PUSH SCH ×2 (15:24→21:27)
[2018-06-11] MEDS: Azithromycin Inj 500 MG in Sodium Chlor 0.9% Inj 250 ML IV.SIG SCH (15:24)
[2018-06-11] MEDS: Sertraline 50 MG Tablet PO SCH (20:00)
[2018-06-11] MEDS: Enoxaparin Inj 40 MG/0.4 ML Syringe SQ SCH (21:26)
--- NOTE | 2018-06-11 21:58 | ECG ---
Date Performed: 06/11/2018 Time Performed: 02:40:48 PTAGE: 73 years EKG: Sinus rhythm WITH MARKED SINUS ARRHYTHMIA POSSIBLE LEFT ATRIAL ENLARGEMENT NONSPECIFIC T-WAVE ABNORMALITY BORDERL INE ECG PREVIOUS TRACING : 06/10/2018 21.14 Since the previous tracing, no significant change noted DOCTOR: Theo Ochoa Interpretating Date/Time 06/11/2018 21:57:09
--- NOTE | 2018-06-11 22:23 | ECG ---
Date Performed: 06/10/2018 Time Performed: 21:14:50 PTAGE: 73 years EKG: Sinus rhythm POSSIBLE LEFT ATRIAL ENLARGEMENT NONSPECIFIC T-WAVE ABNORMALITY BORDERLINE ECG PREVIOUS TRACING : 06/10/2018 16.34 DOCTOR: Theo Ochoa Interpretating Date/Time 06/11/2018 22:21:21
--- NOTE | 2018-06-11 22:36 | ECG ---
Date Performed: 06/10/2018 Time Performed: 16:34:59 PTAGE: 73 years EKG: Sinus rhythm POSSIBLE LEFT ATRIAL ENLARGEMENT NONSPECIFIC T-WAVE ABNORMALITY BORDERLINE ECG PREVIOUS TRACING : 11/24/2004 13.18 Since the previous tracing, no significant change noted DOCTOR: Theo Ochoa Interpretating Date/Time 06/11/2018 22:35:02
[2018-06-12] MEDS: Insulin NovoLOG Aspart Correctional Sugar Inj SQ SCH ×5 (03:52→21:59)
[2018-06-12] MEDS: MethylPREDNISolone Sod Succinate Inj 40 MG/ML Vial IV.PUSH SCH ×3 (06:08→21:56)
[2018-06-12] MEDS: Acetaminophen 325 MG Tablet PO PRN (06:11)
[2018-06-12 07:20] LABS: Anion Gap 4 meq/L (5-15); Blood Urea Nitrogen 19 mg/dL (7-18); Calcium 8.2 mg/dL (8.5-10.1); Carbon Dioxide 35.1 meq/L (21.0-32.0); Chloride 99 meq/L (98-107); Glomerular Filtration Rate Greater Than 89 mL/min (>89); Glucose,Random 149 mg/dL (74-106); Potassium 4.4 meq/L (3.5-5.1); Sodium 138 meq/L (136-145)
[2018-06-12] MEDS ORDERED: Non-Formulary Drug (Omega-3s-Dha-Epa-Fish Oil [Omega-3 Fish Oil] 1 CAP) PO SCH (09:00)
[2018-06-12] MEDS: Sertraline 50 MG Tablet PO SCH ×2 (09:27→21:56)
[2018-06-12] MEDS: Ascorbic Acid 500 MG Tablet PO SCH (09:27)
[2018-06-12] MEDS: Pantoprazole Sodium 20 MG DR Tablet PO SCH (09:28)
[2018-06-12] MEDS: Senna/Docusate Sodium 8.6/50 MG Tablet PO SCH ×2 (09:29→21:56)
--- NOTE | 2018-06-12 10:26 | P.PN ---
Subjective Interval history: coughing this am, feels a little better, has been up in chair Physical Exam Vital signs: Vital Signs 06/11/18 12:00 06/11/18 15:53 06/11/18 16:00 Temperature 97.9 F 98.6 F Pulse Rate 81 83 88 Respiratory Rate 22 22 22 Blood Pressure 115/59 L 119/60 Pulse Oximetry 90 L 90 L 06/11/18 19:58 06/11/18 20:00 06/12/18 00:00 Temperature 98.1 F 98.7 F Pulse Rate 93 H 90 84 Respiratory Rate 21 22 20 Blood Pressure 125/62 107/64 Pulse Oximetry 90 L 97 06/12/18 03:38 06/12/18 04:00 06/12/18 08:00 Temperature 97.5 F L 97.6 F Pulse Rate 80 84 80 Respiratory Rate 17 22 20 Blood Pressure 123/62 163/79 H Pulse Oximetry 94 L 98 06/12/18 09:14 Temperature Pulse Rate 82 Respiratory Rate 20 Blood Pressure Pulse Oximetry 93 L Intake & Output 06/11/18 06/12/18 06/12/18 18:59 06:59 18:59 Intake Total 880 / 880 480 / 480 240 / 240 Output Total 240 / 240 Balance 880 / 880 480 / 480 0 / 0 Intake: Oral 880 / 880 480 / 480 240 / 240 Output: Urine 240 / 240 Other: # Voids 2 3 Date of Last Bowel Movement 06/10/18 # Bowel Movements 0 - Constitutional no acute distress, morbidly obese - Routine HEENT Exam Head: Present: normocephalic ENT: Present: mucous membranes moist - Routine Neck Exam Comments: short, thick - Routine Respiratory Exam Present: decreased breath sounds, diminished air movement - Routine Cardiovascular Exam Present: RRR, S1, S2 - Routine Abdominal Exam Present: soft, normoactive bowel sounds - Routine Skin Exam Present: intact, dry - Routine Neurological Exam Present: alert, oriented X3 - Routine Psychiatric Exam Present: normal affect, normal thought process Results - Labs CBC & Chem 7: 06/10/18 16:40 06/12/18 05:20 Laboratory Results - last 24 hr 06/11/18 06/11/18 06/12/18 17:43 20:03 05:20 Sodium 138 Potassium 4.4 D Chloride 99 Carbon Dioxide 35.1 H Anion Gap 4 L BUN 19 H Creatinine 0.72 Estimated GFR Greater than 89 POC Glucose 144 H 214 H Random Glucose 149 H Calcium 8.2 L 06/12/18 06/12/18 06:07 07:44 Sodium Potassium Chloride Carbon Dioxide Anion Gap BUN Creatinine Estimated GFR POC Glucose 133 H 127 H Random Glucose Calcium - Imaging Impressions Sinuses CT 06/11/18 00:00 CONCLUSION: 1. No significant sinus disease Assessment and Plan - Assessment (1) Diabetes mellitus type 2 in obese Code(s): E11.69 - Type 2 diabetes mellitus with other specified complication; E66.9 - Obesity, unspecified Status: Chronic Plan: continue sliding scale, sugars so far adequate on solumedrol (2) Community acquired pneumonia Code(s): J18.9 - Pneumonia, unspecified organism Status: Acute Plan: cta showed inflammatory vs infectious changes will cover with antibiotics, she has more of a productive cough today, remains afebrile (3) Asthma with exacerbation Code(s): J45.901 - Unspecified asthma with (acute) exacerbation Status: Acute Plan: has hx of asthma in the past she states the nebulizers have subjectively helped her breathing, will cont, added solumedrol yesterday and subjectively she seems more improved (4) Hypoxemia Code(s): R09.02 - Hypoxemia Status: Acute Plan: she is still requiring 3 liters of oxygen though she states she feels better, she copmplains of post nasal drip though her ct scan of sinuse showed no polyps or evidence of sinusitis, she tells me she was to get a toan in the past but somehow this take place, she would benefit from pulmonary consult at this point will place order, (5) Pulmonary nodules Code(s): R91.8 - Other nonspecific abnormal finding of lung field Status: Acute Plan: picked up on cta will need repeat ct as outpatient in 3 months (6) Nonsustained ventricular tachycardia Code(s): I47.2 - Ventricular tachycardia Status: Acute Onset Date: ~ Plan: seen by cardiology felt to be secondary to infectious process, recommend out patient lexiscan, no further episodes
[2018-06-12] MEDS: guaiFENesin/Dextromethorphan 200 MG/20 MG 10 ML UDC PO PRN (13:02)
[2018-06-12] MEDS: Budesonide-Formoterol 160/4.5 MCG 6 GM Inhaler INH SCH ×2 (13:28→21:56)
[2018-06-12] MEDS: Azithromycin Inj 500 MG in Sodium Chlor 0.9% Inj 250 ML IV.SIG SCH (13:31)
[2018-06-12] MEDS: Enoxaparin Inj 40 MG/0.4 ML Syringe SQ SCH (21:56)
[2018-06-13] MEDS: MethylPREDNISolone Sod Succinate Inj 40 MG/ML Vial IV.PUSH SCH ×3 (05:30→20:45)
[2018-06-13] MEDS: Sertraline 50 MG Tablet PO SCH ×2 (08:16→20:27)
[2018-06-13] MEDS: Pantoprazole Sodium 20 MG DR Tablet PO SCH (08:16)
[2018-06-13] MEDS: Senna/Docusate Sodium 8.6/50 MG Tablet PO SCH ×2 (08:16→20:26)
[2018-06-13] MEDS: Ascorbic Acid 500 MG Tablet PO SCH (08:17)
[2018-06-13] MEDS: Budesonide-Formoterol 160/4.5 MCG 6 GM Inhaler INH SCH ×2 (08:18→20:35)
[2018-06-13] MEDS: Insulin NovoLOG Aspart Correctional Sugar Inj SQ SCH ×4 (08:19→20:44)
[2018-06-13] MEDS: guaiFENesin/Dextromethorphan 200 MG/20 MG 10 ML UDC PO PRN (11:57)
--- NOTE | 2018-06-13 12:30 | P.PN ---
Subjective Interval history: states still sob when she moves, only 500-750 on IS states is doing it every day. Cough is less today Physical Exam Vital signs: Vital Signs 06/12/18 15:28 06/12/18 15:30 06/12/18 16:00 Temperature 98.8 F Pulse Rate 93 H 76 83 Respiratory Rate 20 19 Blood Pressure 110/58 L Pulse Oximetry 96 96 06/12/18 20:00 06/12/18 21:21 06/13/18 00:00 Temperature 96.7 F L 96.9 F L Pulse Rate 88 76 85 Respiratory Rate 16 20 18 Blood Pressure 134/75 135/78 Pulse Oximetry 96 96 98 06/13/18 03:22 06/13/18 04:00 06/13/18 08:00 Temperature 96.1 F L 97.3 F L Pulse Rate 75 78 79 Respiratory Rate 8 L 20 21 Blood Pressure 131/84 130/80 Pulse Oximetry 96 94 L 06/13/18 09:43 Temperature Pulse Rate 76 Respiratory Rate 18 Blood Pressure Pulse Oximetry 99 Intake & Output 06/12/18 06/13/18 06/13/18 18:59 06:59 18:59 Intake Total 1850 / 1850 60 / 60 340 / 340 Output Total 1640 / 1640 400 / 400 Balance 210 / 210 60 / 60 -60 / -60 Weight 120.8 kg Intake: IV 350 / 350 Azithromycin Inj 500 MG In NS 250 / 250 Inj 250 ML @ 250 mls/hr IV.SIG Q24H EMY Rx#:[id number] Rocephin Inj 1,000 MG In NS Inj 100 / 100 100 ML @ 200 mls/hr IV.SIG Q24H EMY Rx#:[id number] Oral 1500 / 1500 60 / 60 340 / 340 Output: Urine 1640 / 1640 400 / 400 Other: # Voids 1 2 Date of Last Bowel Movement 06/10/18 Narrative: Lying in bed, has always been in bed when I see her, encourged to get in chair - Constitutional no acute distress - Routine HEENT Exam Head: Present: normocephalic Eye: Present: EOMI ENT: Present: mucous membranes moist - Routine Neck Exam Present: supple - Routine Respiratory Exam Present: decreased breath sounds, CTA bilaterally - Routine Cardiovascular Exam Present: RRR, S1, S2 - Routine Abdominal Exam Present: soft, normoactive bowel sounds - Routine Extremities Exam Comments: no edema - Routine Skin Exam Present: intact - Routine Neurological Exam Present: alert, oriented X3 - Routine Psychiatric Exam Present: normal affect, normal thought process Results - Labs CBC & Chem 7: 06/10/18 16:40 06/12/18 05:20 Laboratory Results - last 24 hr 06/12/18 06/12/18 06/13/18 16:52 21:59 07:57 POC Glucose 208 H 173 H 166 H 06/13/18 11:37 POC Glucose 179 H Assessment and Plan - Assessment (1) Diabetes mellitus type 2 in obese Code(s): E11.69 - Type 2 diabetes mellitus with other specified complication; E66.9 - Obesity, unspecified Status: Chronic Plan: continue sliding scale, sugars so far adequate on solumedrol (2) Community acquired pneumonia Code(s): J18.9 - Pneumonia, unspecified organism Status: Acute Plan: cta showed inflammatory vs infectious changes has improved with antibiotics and steroids , should be able to discharge soon (3) Asthma with exacerbation Code(s): J45.901 - Unspecified asthma with (acute) exacerbation Status: Acute Plan: On Symbicort, nebulizers and steroids , will discharge on oral steroids (4) Hypoxemia Code(s): R09.02 - Hypoxemia Status: Acute Plan: Multifactorial , trying to get her off oxygen today, She barely does 750 on IS, suspect she has a component of sleep apnea as welll, her ct scan of sinuses was negative but did have incidental finding of a mass in the sella that can be followed up with outpatient MRI. (5) Pulmonary nodules Code(s): R91.8 - Other nonspecific abnormal finding of lung field Status: Acute Plan: picked up on cta will need repeat ct as outpatient in 3 months (6) Nonsustained ventricular tachycardia Code(s): I47.2 - Ventricular tachycardia Status: Acute Onset Date: ~ Plan: seen by cardiology felt to be secondary to infectious process, recommend out patient lexiscan, no further episodes
[2018-06-13] MEDS: Azithromycin Inj 500 MG in Sodium Chlor 0.9% Inj 250 ML IV.SIG SCH (13:27)
[2018-06-13] MEDS: Enoxaparin Inj 40 MG/0.4 ML Syringe SQ SCH (20:45)
--- NOTE | 2018-06-13 21:05 | MB ---
cc: Tamar Boyle MD DATE: 06/13/2018 REASON FOR CONSULTATION: Respiratory failure, bronchial asthma. HISTORY OF PRESENT ILLNESS: Ms. Huynh is a 73-year-old female who has a known history of bronchial asthma, which had been improving lately. However, she had been complaining of increasing shortness of breath for about a week now, progressively worse with a sensation of tightness in the chest. No cough, no expectoration. No fever, chills or hemoptysis. No TB. No industrial exposure. The patient does snore on occasion; however, has no history of obstructive sleep apnea. PAST MEDICAL HISTORY: Bronchial asthma as above, diabetes mellitus, hypertension, hyperlipidemia, previous hysterectomy, chronic insomnia. FAMILY HISTORY: Noncontributory. SOCIAL HISTORY: Does not smoke. Does not drink. No TB. No industrial exposure. REVIEW OF SYSTEMS: A 12-point review of systems as per HPI and past history, otherwise negative. CURRENT MEDICATIONS: Include: 1. Nebulized albuterol. 2. Atorvastatin. 3. Zithromax. 4. Budesonide. 5. Formoterol nebulization. 6. Ceftriaxone. 7. Enoxaparin prophylaxis. 8. Losartan. 9. Metoprolol. 10. Protonix. 11. Sertraline. 12. Senokot. 13. Trazodone. ALLERGIES: DOXYCYCLINE, QUESTIONABLY ERYTHROMYCIN, CODEINE. PHYSICAL EXAMINATION: GENERAL: The patient is alert. VITAL SIGNS: Temperature 97.5, pulse 70, respiratory rate 20, blood pressure 117/70, oxygen saturation 92% on 2 liters oxygen nasal cannula. HEENT: Unremarkable. Eyes without icterus. NECK: Without adenopathy or thyroid enlargement. Central trachea. CHEST: A few scattered rhonchi at bases. CARDIAC: PMI not appreciated. S1, S2 audible. No murmur. No rub. ABDOMEN: Lax. Bowel sounds audible. EXTREMITIES: No clubbing, cyanosis. Trace edema. LABORATORY DATA: White count 7.2, hemoglobin 10, hematocrit 32, platelets 215,000. D-dimer 1.0. Glucose upon presentation 137. A CT angiogram on 06/10/2018 with scattered ground glass opacities, significance unclear, probably air trapping. Multiple peripheral densities, again of unclear significance, likely inflammatory. No evidence of pulmonary emboli. The main pulmonary artery is prominent, question element of pulmonary hypertension. Multiple subcentimeter lung nodules, right lower lobe. IMPRESSION: 1. Respiratory failure. 2. Bronchial asthma exacerbation. 3. Morbid obesity. 4. Sleep disordered breathing, obstructive sleep apnea suspect. 5. Hypertension. PLAN: The patient is improved with oxygen therapy and bronchodilators. Underlying infection is a possibility. Antibiotic therapy has been instituted and appropriately so. We will obtain baseline pulmonary functions. The patient will need a sleep evaluation. She is morbidly obese and she is at high risk for underlying obstructive sleep apnea, which would explain her pulmonary hypertension, at least in part. An echocardiogram would be appropriate to assess cardiac performance and try to estimate her pulmonary artery pressures. A baseline arterial blood gas will be obtained as well to assess evidence of hypercarbia. I do thank you for asking me to partake in Ms. Huynh's care. MD LEO Man/naomie , 07:50 PM , 07:59 PM
[2018-06-13 21:13] LABS: ABG Base Excess 6.2 mmol/L (-2-2); ABG PCO2 54 mmHg (38-42); ABG PO2 113 mmHg (61-120)
[2018-06-14] MEDS: MethylPREDNISolone Sod Succinate Inj 40 MG/ML Vial IV.PUSH SCH (05:36)
[2018-06-14] MEDS: Insulin NovoLOG Aspart Correctional Sugar Inj SQ SCH ×4 (08:17→20:57)
[2018-06-14] MEDS: Pantoprazole Sodium 20 MG DR Tablet PO SCH (08:18)
[2018-06-14] MEDS: Ascorbic Acid 500 MG Tablet PO SCH (08:19)
[2018-06-14] MEDS: Sertraline 50 MG Tablet PO SCH ×2 (08:19→20:47)
[2018-06-14] MEDS: Budesonide-Formoterol 160/4.5 MCG 6 GM Inhaler INH SCH ×2 (08:23→20:52)
--- NOTE | 2018-06-14 08:24 | P.PN ---
Subjective Interval history: She denies any increased problem with breathing this morning. She is on oxygen. She states her breathing is improving. She was seen by Dr Boyle yesterday evening. He feels she has sleep apnea and will need a sleep study. He was concerned also that she may have pulmonary hypertension. An ABG ordered by him and done last night showed a pH of 7.38, pO2 of 113, pCO2 of 54. This was done on 2 liter of oxygen. Physical Exam Vital signs: Vital Signs 06/13/18 09:43 06/13/18 12:00 06/13/18 15:51 Temperature 82 F L Pulse Rate 76 78 70 Respiratory Rate 18 19 20 Blood Pressure 152/71 H Pulse Oximetry 99 95 Pulse Oximetry [Resting on Room Air] Pulse Oximetry [Resting with Oxygen] 06/13/18 16:00 06/13/18 16:04 06/13/18 20:00 Temperature 97.3 F L 97.5 F L Pulse Rate 71 79 Respiratory Rate 20 21 Blood Pressure 117/72 122/69 Pulse Oximetry 97 97 Pulse Oximetry [Resting on Room Air] 88 L Pulse Oximetry [Resting with Oxygen] 96 06/13/18 21:05 06/14/18 00:00 06/14/18 03:25 Temperature 97.4 F L Pulse Rate 73 75 75 Respiratory Rate 20 21 48 H Blood Pressure 133/81 Pulse Oximetry 99 93 L Pulse Oximetry [Resting on Room Air] Pulse Oximetry [Resting with Oxygen] 06/14/18 04:00 06/14/18 07:41 Temperature 97.5 F L 96.4 F L Pulse Rate 72 78 Respiratory Rate 20 28 H Blood Pressure 148/75 H 141/91 H Pulse Oximetry 92 L 99 Pulse Oximetry [Resting on Room Air] Pulse Oximetry [Resting with Oxygen] Intake & Output 06/13/18 06/14/18 06/14/18 18:59 06:59 18:59 Intake Total 1110 / 1110 240 / 240 Output Total 880 / 880 Balance 230 / 230 240 / 240 Weight 122.3 kg Intake: IV 350 / 350 Azithromycin Inj 500 MG In NS 250 / 250 Inj 250 ML @ 250 mls/hr IV.SIG Q24H EMY Rx#:[id number] Rocephin Inj 1,000 MG In NS Inj 100 / 100 100 ML @ 200 mls/hr IV.SIG Q24H EMY Rx#:[id number] Oral 760 / 760 240 / 240 Output: Urine 880 / 880 Other: # Voids 2 Date of Last Bowel Movement 06/13/18 # Bowel Movements 1 Narrative: Physical exam: Obese black female in no distress. HEENT: Pupils equal, mouth negative Neck: No JVD Heart: RRR with no murmurs Lungs: No definite wheezing or rhonchi Abdomen: Soft, nontender, no masses Extremities: No edema, no calf tenderness Neuro: normal motor exam, alert Results - Labs CBC & Chem 7: 06/10/18 16:40 06/12/18 05:20 Laboratory Results - last 24 hr 06/12/18 06/13/18 06/13/18 05:20 11:37 17:14 Puncture Site Patient Temperature O2 Saturation ABG pH ABG pCO2 ABG pO2 ABG HCO3 ABG O2 Content ABG Base Excess ABG Methemoglobin [place] Test Hemoglobin Carboxyhemoglobin O2 Delivery Device Liter Flow Critical Value POC Glucose 179 H 136 H TSH 0.223 L 06/13/18 06/13/18 06/14/18 20:35 21:02 07:28 Puncture Site Left radial Patient Temperature 98.6 O2 Saturation 96 ABG pH 7.38 ABG pCO2 54 H* ABG pO2 113 ABG HCO3 31 H ABG O2 Content 14.5 ABG Base Excess 6.2 H ABG Methemoglobin 1.2 [place] Test Y Hemoglobin 10.6 L Carboxyhemoglobin 1.4 O2 Delivery Device Nasal cannula Liter Flow 2.00 Critical Value Yes POC Glucose 237 H 159 H TSH Assessment and Plan - Assessment (1) Diabetes mellitus type 2 in obese Code(s): E11.69 - Type 2 diabetes mellitus with other specified complication; E66.9 - Obesity, unspecified Status: Chronic (2) Community acquired pneumonia Code(s): J18.9 - Pneumonia, unspecified organism Status: Acute (3) Asthma with exacerbation Code(s): J45.901 - Unspecified asthma with (acute) exacerbation Status: Acute (4) Hypoxemia Code(s): R09.02 - Hypoxemia Status: Acute (5) Pulmonary nodules Code(s): R91.8 - Other nonspecific abnormal finding of lung field Status: Acute (6) Nonsustained ventricular tachycardia Code(s): I47.2 - Ventricular tachycardia Status: Acute Onset Date: ~ Plan: Seen by cardiology who felt this to be secondary to infectious process and hypoxia. They recommend out patient Lexiscan. No further episodes on telemetry. (7) Hyperlipidemia Code(s): E78.5 - Hyperlipidemia, unspecified Status: Acute - Plan Appreciate Dr. Boyle's input and suggestion. She failed a respiratory walk test and will need home oxygen and nebulizer when she is able to be discharged. Her ABG did show some mild CO2 retention. Continue antibiotics. She is on sliding scale also since she is on steroids. I will change her to oral Prednisone. She will need an outpatient CT scan of the chest in 3 months to follow-up on a pulmonary nodule. Cardiology has also suggested that she have an outpatient Lexiscan because she had a brief 7 beat episode of nonsustained ventricular tachycardia on admission. Will recheck a CBC and a BMP today.
[2018-06-14] MEDS: Senna/Docusate Sodium 8.6/50 MG Tablet PO SCH ×2 (08:26→20:51)
[2018-06-14] MEDS: predniSONE 20 MG Tablet PO SCH (10:45)
[2018-06-14 11:11] LABS: Baso % (Auto) 0.1 % (0.0-2.0); Eos % (Auto) 0.2 % (0.0-4.0); Hematocrit 34.4 % (35.0-46.0); Hemoglobin 11.1 gm/dL (11.6-15.3); Lymph # (Auto) 0.5 th/mm3 (1.0-4.8); Lymph % (Auto) 6.1 % (9.0-44.0); Mean Corpuscular HGB Conc 32.1 % (32.0-36.0); Mean Corpuscular Hemoglobin 30.8 pg (27.0-34.0); Mean Corpuscular Volume 95.7 fL (80.0-100.0); Mean Platelet Volume 8.9 fL (7.0-11.0); Mono # (Auto) 0.5 th/mm3 (0.0-0.9); Mono % (Auto) 6.7 % (0.0-8.0); Neut % (Auto) 86.9 % (16.0-70.0); Platelet Count 269 th/mm3 (150-450); Red Cell Distribution Width 15.5 % (11.6-17.2)
[2018-06-14 11:25] LABS: Potassium 4.2 meq/L (3.5-5.1)
[2018-06-14 11:27] LABS: Calcium 8.3 mg/dL (8.5-10.1)
[2018-06-14 11:28] LABS: Carbon Dioxide 33.4 meq/L (21.0-32.0)
[2018-06-14 11:42] LABS: Thyroid Stimulating Hormone 0.549 uIU/mL (0.358-3.740)
[2018-06-14] MEDS: Azithromycin Inj 500 MG in Sodium Chlor 0.9% Inj 250 ML IV.SIG SCH (14:34)
--- NOTE | 2018-06-14 15:00 | P.PN ---
Subjective Interval history: ALERT STILL CONGESTED, BUT LESS NO SOB AT REST Physical Exam Vital signs: Vital Signs 06/13/18 15:51 06/13/18 16:00 06/13/18 16:04 Temperature 97.3 F L Pulse Rate 70 71 Respiratory Rate 20 20 Blood Pressure 117/72 Pulse Oximetry 97 Pulse Oximetry [Resting on Room Air] 88 L Pulse Oximetry [Resting with Oxygen] 96 06/13/18 20:00 06/13/18 21:05 06/14/18 00:00 Temperature 97.5 F L 97.4 F L Pulse Rate 79 73 75 Respiratory Rate 21 20 21 Blood Pressure 122/69 133/81 Pulse Oximetry 97 99 93 L Pulse Oximetry [Resting on Room Air] Pulse Oximetry [Resting with Oxygen] 06/14/18 03:25 06/14/18 04:00 06/14/18 07:41 Temperature 97.5 F L 96.4 F L Pulse Rate 75 72 78 Respiratory Rate 48 H 20 28 H Blood Pressure 148/75 H 141/91 H Pulse Oximetry 92 L 99 Pulse Oximetry [Resting on Room Air] Pulse Oximetry [Resting with Oxygen] 06/14/18 08:00 06/14/18 08:03 06/14/18 09:40 Temperature Pulse Rate 75 79 Respiratory Rate 22 Blood Pressure Pulse Oximetry 97 95 Pulse Oximetry [Resting on Room Air] Pulse Oximetry [Resting with Oxygen] 06/14/18 12:00 06/14/18 14:43 Temperature 96.4 F L Pulse Rate 76 70 Respiratory Rate 20 20 Blood Pressure 131/72 Pulse Oximetry 94 L Pulse Oximetry [Resting on Room Air] Pulse Oximetry [Resting with Oxygen] Intake & Output 06/13/18 06/14/18 06/14/18 18:59 06:59 18:59 Intake Total 1110 / 1110 240 / 240 100 / 100 Output Total 880 / 880 Balance 230 / 230 240 / 240 100 / 100 Weight 122.3 kg Intake: IV 350 / 350 100 / 100 Azithromycin Inj 500 MG In NS 250 / 250 Inj 250 ML @ 250 mls/hr IV.SIG Q24H EMY Rx#:[id number] Rocephin Inj 1,000 MG In NS Inj 100 / 100 100 / 100 100 ML @ 200 mls/hr IV.SIG Q24H EMY Rx#:[id number] Oral 760 / 760 240 / 240 Output: Urine 880 / 880 Other: # Voids 2 Date of Last Bowel Movement 06/13/18 # Bowel Movements 1 Narrative: Physical exam: Obese black female in no distress. HEENT: Pupils equal, mouth negative Neck: No JVD Heart: RRR with no murmurs Lungs: No SCATTERED wheezing Abdomen: Soft, nontender, no masses Extremities: No edema, no calf tenderness Neuro: normal motor exam, alert Results - Labs CBC & Chem 7: 06/14/18 10:57 06/14/18 10:57 Laboratory Results - last 24 hr 06/12/18 06/13/18 06/13/18 05:20 17:14 20:35 CBC w Diff WBC RBC Hgb Hct MCV MCH MCHC RDW Plt Count MPV Neut % (Auto) Lymph % (Auto) [place] % (Auto) Eos % (Auto) Baso % (Auto) Neut # (Auto) Lymph # (Auto) [place] # (Auto) Eos # (Auto) Baso # (Auto) WBC Differential Differential Comment Puncture Site Patient Temperature O2 Saturation ABG pH ABG pCO2 ABG pO2 ABG HCO3 ABG O2 Content ABG Base Excess ABG Methemoglobin [place] Test Hemoglobin Carboxyhemoglobin O2 Delivery Device Liter Flow Critical Value Sodium Potassium Chloride Carbon Dioxide Anion Gap BUN Creatinine Estimated GFR POC Glucose 136 H 237 H Random Glucose Calcium TSH 0.223 L 06/13/18 06/14/18 06/14/18 21:02 07:28 10:57 CBC w Diff Auto diff final WBC 8.0 RBC 3.60 L Hgb 11.1 L Hct 34.4 L MCV 95.7 MCH 30.8 MCHC 32.1 RDW 15.5 Plt Count 269 MPV 8.9 Neut % (Auto) 86.9 H Lymph % (Auto) 6.1 L [place] % (Auto) 6.7 Eos % (Auto) 0.2 Baso % (Auto) 0.1 Neut # (Auto) 7.0 Lymph # (Auto) 0.5 L [place] # (Auto) 0.5 Eos # (Auto) 0.0 Baso # (Auto) 0.0 WBC Differential . Differential Comment . Puncture Site Left radial Patient Temperature 98.6 O2 Saturation 96 ABG pH 7.38 ABG pCO2 54 H* ABG pO2 113 ABG HCO3 31 H ABG O2 Content 14.5 ABG Base Excess 6.2 H ABG Methemoglobin 1.2 [place] Test Y Hemoglobin 10.6 L Carboxyhemoglobin 1.4 O2 Delivery Device Nasal cannula Liter Flow 2.00 Critical Value Yes Sodium Potassium Chloride Carbon Dioxide Anion Gap BUN Creatinine Estimated GFR POC Glucose 159 H Random Glucose Calcium TSH 06/14/18 06/14/18 10:57 11:27 CBC w Diff WBC RBC Hgb Hct MCV MCH MCHC RDW Plt Count MPV Neut % (Auto) Lymph % (Auto) [place] % (Auto) Eos % (Auto) Baso % (Auto) Neut # (Auto) Lymph # (Auto) [place] # (Auto) Eos # (Auto) Baso # (Auto) WBC Differential Differential Comment Puncture Site Patient Temperature O2 Saturation ABG pH ABG pCO2 ABG pO2 ABG HCO3 ABG O2 Content ABG Base Excess ABG Methemoglobin [place] Test Hemoglobin Carboxyhemoglobin O2 Delivery Device Liter Flow Critical Value Sodium 138 Potassium 4.2 Chloride 98 Carbon Dioxide 33.4 H Anion Gap 7 BUN 17 Creatinine 0.96 Estimated GFR 69 L POC Glucose 200 H Random Glucose 200 H Calcium 8.3 L TSH 0.549 Assessment and Plan - Plan IMPRESSION ASTHMA EXACERBATION RESP. FAILURE ? TASHA OBESITY PLAN O2 NEEDED ANTIBX BRONCHODILATOR THERAPY INCREASE ACTIVITY
[2018-06-14 17:31] LABS: Creatine Kinase 71 U/L (26-192)
[2018-06-14] MEDS ORDERED: Morphine Sulfate Inj 2 MG/ML Vial IV.PUSH PRN (17:38)
[2018-06-14] MEDS: Enoxaparin Inj 40 MG/0.4 ML Syringe SQ SCH (21:00)
[2018-06-14 22:46] LABS: Creatine Kinase 76 U/L (26-192)
[2018-06-15 04:47] LABS: Creatine Kinase 67 U/L (26-192)
[2018-06-15] MEDS ORDERED: Morphine Inj 4 MG/ML Vial IV.PUSH PRN (06:33)
--- NOTE | 2018-06-15 06:50 | P.PN ---
Subjective Interval history: Patient yesterday complained of some anterior chest pain. An EKG was obtained which showed no acute process. Cardiac enzymes done serially were negative and follow-up EKG was also negative for any acute process. The nurse did place a call to cardiology yesterday and talked with Dr. Azar who just ordered nitro sublingually as well as Isosorbide. As I am seeing the patient this morning she complains of some pain in her mid chest area and states that it comes and goes. I subsequently pressed on her mid sternal area and she was very tender to touch in that region and in the anterior chest wall. Her pain would appear to definitely be chest wall pain. She does have a nuclear stress test that is to be completed today. She still has shortness of breath on exertion. She states she does get up and walk some during the day but does get exertional shortness of breath. She still is on oxygen. Physical Exam Vital signs: Vital Signs 06/14/18 07:41 06/14/18 08:00 06/14/18 08:03 Temperature 96.4 F L Pulse Rate 78 75 Respiratory Rate 28 H Blood Pressure 141/91 H Pulse Oximetry 99 97 06/14/18 09:40 06/14/18 12:00 06/14/18 14:43 Temperature 96.4 F L Pulse Rate 79 79 70 Respiratory Rate 22 20 20 Blood Pressure 131/72 Pulse Oximetry 95 94 L 06/14/18 16:00 06/14/18 16:16 06/14/18 16:30 Temperature 96.2 F L 96.6 F L Pulse Rate 80 76 73 Respiratory Rate 20 22 Blood Pressure 141/87 H 133/95 H Pulse Oximetry 97 96 06/14/18 20:00 06/14/18 21:13 06/15/18 00:00 Temperature 97.2 F L 97.4 F L Pulse Rate 77 78 64 Respiratory Rate 20 22 21 Blood Pressure 150/91 H 118/56 L Pulse Oximetry 96 97 98 06/15/18 04:00 Temperature 97.4 F L Pulse Rate 72 Respiratory Rate 21 Blood Pressure 122/60 Pulse Oximetry 95 Intake & Output 06/14/18 06/14/18 06/15/18 06:59 18:59 06:59 Intake Total 240 / 240 830 / 830 Balance 240 / 240 830 / 830 Weight 122.3 kg Intake: IV 350 / 350 Azithromycin Inj 500 MG In NS 250 / 250 Inj 250 ML @ 250 mls/hr IV.SIG Q24H EMY Rx#:[id number] Rocephin Inj 1,000 MG In NS Inj 100 / 100 100 ML @ 200 mls/hr IV.SIG Q24H EMY Rx#:[id number] Oral 240 / 240 480 / 480 Other: # Voids 2 5 Date of Last Bowel Movement 06/13/18 06/13/18 # Bowel Movements 1 1 Narrative: Physical exam: Obese black female in no distress. HEENT: Pupils equal, mouth negative Neck: No JVD Heart: RRR with no murmurs Lungs: No obvious wheezing. Chest: She has mild to moderate tenderness of the mid anterior sternal and surrounding regions of the anterior chest suggestive of chest wall pain. Abdomen: Soft, nontender, no masses Extremities: No edema, no calf tenderness Neuro: normal motor exam, Results - Labs CBC & Chem 7: 06/14/18 10:57 06/14/18 10:57 Laboratory Results - last 24 hr 06/14/18 06/14/18 06/14/18 07:28 10:57 10:57 CBC w Diff Auto diff final WBC 8.0 RBC 3.60 L Hgb 11.1 L Hct 34.4 L MCV 95.7 MCH 30.8 MCHC 32.1 RDW 15.5 Plt Count 269 MPV 8.9 Neut % (Auto) 86.9 H Lymph % (Auto) 6.1 L [place] % (Auto) 6.7 Eos % (Auto) 0.2 Baso % (Auto) 0.1 Neut # (Auto) 7.0 Lymph # (Auto) 0.5 L [place] # (Auto) 0.5 Eos # (Auto) 0.0 Baso # (Auto) 0.0 WBC Differential . Differential Comment . Sodium 138 Potassium 4.2 Chloride 98 Carbon Dioxide 33.4 H Anion Gap 7 BUN 17 Creatinine 0.96 Estimated GFR 69 L POC Glucose 159 H Random Glucose 200 H Calcium 8.3 L Total Creatine Kinase Troponin I TSH 0.549 06/14/18 06/14/18 06/14/18 11:27 16:57 17:04 CBC w Diff WBC RBC Hgb Hct MCV MCH MCHC RDW Plt Count MPV Neut % (Auto) Lymph % (Auto) [place] % (Auto) Eos % (Auto) Baso % (Auto) Neut # (Auto) Lymph # (Auto) [place] # (Auto) Eos # (Auto) Baso # (Auto) WBC Differential Differential Comment Sodium Potassium Chloride Carbon Dioxide Anion Gap BUN Creatinine Estimated GFR POC Glucose 200 H 200 H Random Glucose Calcium Total Creatine Kinase 71 Troponin I Less than 0.02 L TSH 06/14/18 06/14/18 06/15/18 20:55 22:12 04:05 CBC w Diff WBC RBC Hgb Hct MCV MCH MCHC RDW Plt Count MPV Neut % (Auto) Lymph % (Auto) [place] % (Auto) Eos % (Auto) Baso % (Auto) Neut # (Auto) Lymph # (Auto) [place] # (Auto) Eos # (Auto) Baso # (Auto) WBC Differential Differential Comment Sodium Potassium Chloride Carbon Dioxide Anion Gap BUN Creatinine Estimated GFR POC Glucose 200 H Random Glucose Calcium Total Creatine Kinase 76 67 Troponin I Less than 0.02 L Less than 0.02 L TSH Assessment and Plan - Assessment (1) Diabetes mellitus type 2 in obese Code(s): E11.69 - Type 2 diabetes mellitus with other specified complication; E66.9 - Obesity, unspecified Status: Chronic (2) Community acquired pneumonia Code(s): J18.9 - Pneumonia, unspecified organism Status: Acute (3) Asthma with exacerbation Code(s): J45.901 - Unspecified asthma with (acute) exacerbation Status: Acute (4) Hypoxemia Code(s): R09.02 - Hypoxemia Status: Acute (5) Pulmonary nodules Code(s): R91.8 - Other nonspecific abnormal finding of lung field Status: Acute (6) Nonsustained ventricular tachycardia Code(s): I47.2 - Ventricular tachycardia Status: Acute Onset Date: ~ (7) Hyperlipidemia Code(s): E78.5 - Hyperlipidemia, unspecified Status: Acute (8) Hypertension Code(s): I10 - Essential (primary) hypertension Status: Chronic (9) Musculoskeletal chest pain Code(s): R07.89 - Other chest pain Status: Acute - Plan Appreciate Dr. Boyle's input and suggestion. She failed a respiratory walk test and will need home oxygen and nebulizer when she is able to be discharged. Her ABG did show some mild CO2 retention. Continue antibiotics. She is on sliding scale also since she is on steroids. She is now on oral Prednisone. She will need an outpatient CT scan of the chest in 3 months to follow-up on a pulmonary nodule. A Lexiscan is to be completed today. I am going to have case management arrange for patient to go to a rehab facility when discharged for some physical therapy. I will have heat applied to her chest wall. If her Lexiscan is negative then I will stop the nitrates since it currently appears her chest pain is musculoskeletal in origin. She is already on a steroid so I will avoid an NSAID.
[2018-06-15] MEDS: Insulin NovoLOG Aspart Correctional Sugar Inj SQ SCH ×4 (08:00→20:40)
[2018-06-15] MEDS ORDERED: Regadenoson Inj 0.4 MG/5 ML Syringe IV.PUSH ONE (10:33)
[2018-06-15] MEDS: Sertraline 50 MG Tablet PO SCH ×2 (10:39→20:31)
[2018-06-15] MEDS: Senna/Docusate Sodium 8.6/50 MG Tablet PO SCH ×2 (10:39→20:31)
[2018-06-15] MEDS: predniSONE 20 MG Tablet PO SCH (10:39)
[2018-06-15] MEDS: Ascorbic Acid 500 MG Tablet PO SCH (10:39)
[2018-06-15] MEDS: Budesonide-Formoterol 160/4.5 MCG 6 GM Inhaler INH SCH ×2 (10:40→20:31)
[2018-06-15] MEDS: Pantoprazole Sodium 20 MG DR Tablet PO SCH (10:40)
--- NOTE | 2018-06-15 11:41 | ECG ---
Date Performed: 06/14/2018 Time Performed: 16:28:15 PTAGE: 73 years EKG: Sinus rhythm POSSIBLE LEFT ATRIAL ENLARGEMENT BORDERLINE ECG Since the PREVIOUS TRACING , no significant change noted PREVIOUS TRACIN06/11/2018 02.40 DOCTOR: Aaron Mohr Interpretating Date/Time 06/15/2018 11:40:37
--- NOTE | 2018-06-15 11:41 | ECG ---
Date Performed: 06/14/2018 Time Performed: 22:09:58 PTAGE: 73 years EKG: Sinus rhythm POSSIBLE LEFT ATRIAL ENLARGEMENT NONSPECIFIC T-WAVE ABNORMALITY BORDERLINE ECG Since the PREVIOUS TRACING , no significant change noted PREVIOUS TRACIN06/14/2018 16.28 DOCTOR: Aaron Mohr Interpretating Date/Time 06/15/2018 11:40:58
--- NOTE | 2018-06-15 11:41 | ECG ---
Date Performed: 06/15/2018 Time Performed: 04:28:13 PTAGE: 73 years EKG: Sinus rhythm POSSIBLE LEFT ATRIAL ENLARGEMENT Nonspecific T-wave changes BORDERLINE ECG PREVIOUS TRACING : 06/14/2018 22.09 Since the previous tracing, no significant change noted DOCTOR: Aaron Mohr Interpretating Date/Time 06/15/2018 12:01:15
--- NOTE | 2018-06-15 12:17 | NM ---
EXAM DATE: 06/15/2018 12:09 PM EST AGE/SEX: 73 years / Female INDICATIONS:Abnormal EKG. . CLINICAL DATA: This is the patient's initial encounter. Patient reports that signs and symptoms have been present for 1 day and indicates a pain score of 1/10. MEDICAL/SURGICAL HISTORY: Asthma. Diabetes mellitus type II. Hypertension. Hysterectomy. COMPARISON: No prior exams available for comparison. DOSE: 30.1 mCi Tc 99m Myoview at rest 30.2 mCi [id number] at stress 0.4 mg Lexiscan STRESS SYMPTOMS: Chest tightness and lightheadedness. EJECTION FRACTION: 41 % TECHNIQUE: The patient underwent pharmacologic stress with infusion of prescribed dose. Continuous ECG tracing was monitored during stress. Gated SPECT imaging was performed after stress and conventi onal SPECT imaging was performed at rest. The examination was performed on a SPECT/CT scanner, both attenuation and non-corrected datasets were reviewed. Two day protocol was used. FINDINGS: Distribution: The maximum perfused segment at stress is in the anterolateral wall. Perfusion Study: The pattern of perfusion at stress demonstrates absent perfusion to the mid and lo w anterior wall which is fixed the rest with similar type of fixed defect in the low inferoapical wal l without any significant ischemia . Gated Study: There is mild global hypokinesis. The ejection fraction is calculated at 41%. RISK CATEGORY: Low (<1% Annual Motality Rate) CONCLUSION: 1. No appreciable ischemia and slight reduction in ejection fraction. Electronically signed by: Froy Crespo MD Board Certified Radiologist 06/15/2018 12:16 PM EST
[2018-06-15] MEDS: Azithromycin Inj 500 MG in Sodium Chlor 0.9% Inj 250 ML IV.SIG SCH (14:48)
--- NOTE | 2018-06-15 16:13 | P.PN ---
Subjective Interval history: ALERT NO SOB AT REST DIFFICULTY AMBULATING O2 SAT RA 87% Physical Exam Vital signs: Vital Signs 06/14/18 16:16 06/14/18 16:30 06/14/18 20:00 Temperature 96.6 F L 97.2 F L Pulse Rate 76 73 77 Respiratory Rate 22 20 Blood Pressure 133/95 H 150/91 H Pulse Oximetry 96 96 Pulse Oximetry [Resting on Room Air] Pulse Oximetry [Resting with Oxygen] 06/14/18 21:13 06/15/18 00:00 06/15/18 04:00 Temperature 97.4 F L 97.4 F L Pulse Rate 78 64 72 Respiratory Rate 22 21 21 Blood Pressure 118/56 L 122/60 Pulse Oximetry 97 98 95 Pulse Oximetry [Resting on Room Air] Pulse Oximetry [Resting with Oxygen] 06/15/18 08:00 06/15/18 10:05 06/15/18 10:34 Temperature 97.3 F L Pulse Rate 73 73 Respiratory Rate 20 Blood Pressure 146/63 H 120/85 Pulse Oximetry 98 98 96 Pulse Oximetry [Resting on Room Air] Pulse Oximetry [Resting with Oxygen] 06/15/18 15:37 Temperature Pulse Rate Respiratory Rate Blood Pressure Pulse Oximetry Pulse Oximetry [Resting on Room Air] 86 L Pulse Oximetry [Resting with Oxygen] 98 Intake & Output 06/14/18 06/15/18 06/15/18 18:59 06:59 18:59 Intake Total 830 / 830 360 / 360 100 / 100 Balance 830 / 830 360 / 360 100 / 100 Intake: IV 350 / 350 100 / 100 Azithromycin Inj 500 MG In NS 250 / 250 Inj 250 ML @ 250 mls/hr IV.SIG Q24H EMY Rx#:[id number] Rocephin Inj 1,000 MG In NS Inj 100 / 100 100 / 100 100 ML @ 200 mls/hr IV.SIG Q24H EMY Rx#:[id number] Oral 480 / 480 360 / 360 Other: # Voids 5 2 Date of Last Bowel Movement 06/13/18 # Bowel Movements 1 Narrative: Physical exam: Obese black female in no distress. HEENT: Pupils equal, mouth negative Neck: No JVD Heart: RRR with no murmurs Lungs: No obvious wheezing. Chest: She has mild to moderate tenderness of the mid anterior sternal and surrounding regions of the anterior chest suggestive of chest wall pain. Abdomen: Soft, nontender, no masses Extremities: No edema, no calf tenderness Neuro: normal motor exam, Results - Labs CBC & Chem 7: 06/14/18 10:57 06/14/18 10:57 Laboratory Results - last 24 hr 06/14/18 06/14/18 06/14/18 16:57 17:04 20:55 POC Glucose 200 H 200 H Total Creatine Kinase 71 Troponin I Less than 0.02 L 06/14/18 06/15/18 06/15/18 22:12 04:05 07:49 POC Glucose 111 H Total Creatine Kinase 76 67 Troponin I Less than 0.02 L Less than 0.02 L 06/15/18 10:37 POC Glucose 116 H Total Creatine Kinase Troponin I - Imaging Impressions Myocardial Perfusion Scan Nuc Med 06/14/18 00:00 CONCLUSION: 1. No appreciable ischemia and slight reduction in ejection fraction. Assessment and Plan - Plan IMPRESSION ASTHMA EXACERBATION RESP. FAILURE ? TASHA OBESITY PLAN O2 NEEDED ANTIBX BRONCHODILATOR THERAPY INCREASE ACTIVITY OK TO D/C ON PO CEFTIN O2 2L/MIN 21/01 WILL NEED REHAB POST D/C OFFICE I WEEK
--- NOTE | 2018-06-15 18:05 | P.CONCA ---
History of Present Illness Service: [facility] Cardiology Consult date: 06/15/18 Requesting Physician: Isaak Garcia Reason for Consult: Chest pain Primary Care Provider: Vitor Schultz MD Chief Complaint: sob History of Present Illness: 73-year-old female with HTN, DM who was sent from PCPs office for hypoxia on admission. [facility] cardiology was initially consulted for 7 beats NSVT, and had signed off. During her stay here, she developed substernal chest pain, for that reason, cardiology was reconsulted. Patient report of substernal chest discomfort, radiated to the neck and back. Chest pain subsided by and IV in morphine and sublingual nitroglycerin. She also reported of significant short of breath with minimal exertion. Review of Systems All other systems reviewed negative except as stated in HPI PMFSH - History History Provided By: Patient, Medical Record - Medical History Medical History: Medical History (Last Reviewed 06/13/18 @ 11:32 by Rupesh Kennedy) Anxiety Asthma Diabetes H/O: hysterectomy High cholesterol Hypertension Insomnia - Tobacco History Second Hand Smoke Exposure: No Smoking Status: Never smoker - Alcohol History How Often Do You Have a Drink Containing Alcohol: Never - Substance Use History Substance History: No History of Abuse - Travel History History of Recent Travel: Yes Recent Travel Out of the Country Within the Last 8 Weeks: Yes - Immunization History Tetanus Immunization: Unsure Hx Influenza Vaccine This Season: Yes Medications and Allergies Active Medications: Active Medications Acetaminophen (Tylenol) 650 mg PO Q4H PRN PRN Reason: Temp > 100.4 Last Admin: 06/12/18 06:11 Dose: 650 mg Al Hydroxide/Mg Hydroxide (Milk Of Murali Tripathi) 30 ml PO Q12H PRN PRN Reason: Mild Constipation Ascorbic Acid (Vitamin C) 500 mg PO DAILY [facility] Last Admin: 06/15/18 10:39 Dose: 500 mg Aspirin (Aspirin Chew) 81 mg PO DAILY [facility] Last Admin: 06/15/18 10:39 Dose: 81 mg Atorvastatin Calcium (Lipitor) 20 mg PO HS [facility] Last Admin: 06/14/18 20:47 Dose: 20 mg Bisacodyl (Dulcolax Supp) 10 mg RECTAL DAILY PRN PRN Reason: SEVERE CONSITIPATION Budesonide/Formoterol Fumarate (Symbicort 160/4.5 Mcg Inh) 1 puff INH BID [facility] Last Admin: 06/15/18 10:40 Dose: 1 puff Dextrose (D50w Vial) 50 ml IV.PUSH UNSCH PRN PRN Reason: PER HYPOGLYCEMIA PROTOCOL Enalaprilat (Vasotec Inj) 1.25 mg IV.PUSH Q6H PRN PRN Reason: HYPERTENSION Enoxaparin Sodium (Lovenox Inj) 40 mg SQ Q24H [facility] Last Admin: 06/14/18 21:00 Dose: 40 mg Fluticasone Propionate (Flonase Nasal [place]) 2 spray NASAL DAILY [facility] Last Admin: 06/15/18 10:40 Dose: 2 spray Glucagon (Glucagon Inj) 1 mg OTHER PRN PRN PRN Reason: for Hypoglycemia Protocol Guaifenesin/Dextromethorphan (Robitussin Dm Liq) 10 ml PO Q6H PRN PRN Reason: COUGH Last Admin: 06/13/18 11:57 Dose: 10 ml Azithromycin 500 mg/ Sodium (Chloride) 250 mls @ 250 mls/hr IV.SIG Q24H [facility] Last Infusion: 06/15/18 16:36 Dose: Infused Ceftriaxone Sodium 1,000 mg/ (Sodium Chloride) 100 mls @ 200 mls/hr IV.SIG Q24H [facility] Last Infusion: 06/15/18 14:38 Dose: Infused Insulin Aspart (Novolog Insulin Correctional Sugar Inj) 0 unit SQ ACHS [facility]; Protocol Last Admin: 06/15/18 16:36 Dose: Not Given Lactulose (Lactulose Liq) 30 ml PO DAILY PRN PRN Reason: SEVERE CONSITIPATION Losartan Potassium (Cozaar) 25 mg PO DAILY [facility] Last Admin: 06/15/18 10:39 Dose: 25 mg Metoprolol Succinate (Toprol Xl) 50 mg PO DAILY [facility] Last Admin: 06/15/18 10:39 Dose: 50 mg Miscellaneous (Pill Splitter) 1 each OTHER UNSCH [facility] Morphine Sulfate (Morphine Inj) 2 mg IV.PUSH Q4H PRN PRN Reason: SEVERE PAIN 7-10 Last Admin: 06/15/18 06:36 Dose: 2 mg Nitroglycerin (Nitrostat Sl) 0.4 mg SL Q5M PRN PRN Reason: CHEST PAIN Nitroglycerin (Nitro-Bid 2% Oint) 1 inch TOPICAL Q6H [facility] Last Admin: 06/15/18 17:14 Dose: Not Given Ondansetron HCl (Zofran Inj) 4 mg IV.PUSH Q6H PRN PRN Reason: NAUSEA OR VOMITING Last Admin: 06/11/18 04:02 Dose: 4 mg Pantoprazole Sodium (Protonix) 20 mg PO DAILY [facility] Last Admin: 06/15/18 10:40 Dose: 20 mg Prednisone (Deltasone) 20 mg PO DAILY [facility] Last Admin: 06/15/18 10:39 Dose: 20 mg Senna/Docusate Sodium (Yazmin-Colace) 1 tab PO BID [facility] Last Admin: 06/15/18 10:39 Dose: 1 tab Sennosides (Senokot) 17.2 mg PO Q12H PRN PRN Reason: Moderate Constipation Sertraline HCl (Zoloft) 25 mg PO BID [facility] Last Admin: 06/15/18 10:39 Dose: 25 mg Sodium Chloride (Ns Flush) 2 ml IV.FLUSH BID [facility] Last Admin: 06/15/18 10:40 Dose: 2 ml Sodium Chloride (Ns Flush) 2 ml IV.FLUSH PRN PRN PRN Reason: FLUSH AFTER USING IV ACCESS Trazodone HCl (Desyrel) 50 mg PO HS PRN PRN Reason: Insomnia Allergies Allergy/AdvReac Type Severity Reaction Status Date / Time doxycycline Allergy Severe RESPIRIATORY Verified 06/10/18 20:12 ARREST minocycline Allergy Severe RESPIRIATORY Verified 06/10/18 20:12 ARREST tigecycline Allergy Severe RESPIRIATORY Verified 06/10/18 20:12 ARREST codeine Allergy Unknown Rash Verified 06/10/18 20:12 erythromycin base Allergy Unknown Rash Verified 06/10/18 20:12 Sulfa (Sulfonamide Allergy Unknown Rash Verified 06/10/18 20:12 Antibiotics) Home Medications Medication Instructions Recorded Confirmed Type Aspirin Low Dose 81 mg PO DAILY 06/10/18 06/10/18 History Calcium 600 1 tab PO DAILY 06/10/18 06/10/18 History Vitamin B-12 1,000 mcg PO DAILY 06/10/18 06/10/18 History ascorbic acid (vitamin C) [Vitamin 1 tab PO DAILY 06/10/18 06/10/18 History C] atorvastatin 1 tab PO DAILY 06/10/18 06/10/18 History celecoxib 1 cap PO DAILY 06/10/18 06/10/18 History losartan 1 tab PO DAILY 06/10/18 06/10/18 History metformin 1 tab PO BID 06/10/18 06/10/18 History metoprolol succinate 1 tab PO DAILY 06/10/18 06/10/18 History multivitamin 1 tab PO DAILY 06/10/18 06/10/18 History [id number] oil [[place]-3 1 cap PO DAILY 06/10/18 06/10/18 History Fish Oil] omeprazole 1 cap PO DAILY 06/10/18 06/10/18 History sertraline 1 tab PO BID 06/10/18 06/10/18 History trazodone 1 tab PO HS PRN 06/10/18 06/10/18 History zinc 1 tab PO DAILY 06/10/18 06/10/18 History Exam Vital signs: Vital Signs 06/14/18 20:00 06/14/18 21:13 06/15/18 00:00 Temperature 97.2 F L 97.4 F L Pulse Rate 77 78 64 Respiratory Rate 20 22 21 Blood Pressure 150/91 H 118/56 L Pulse Oximetry 96 97 98 Pulse Oximetry [Resting on Room Air] Pulse Oximetry [Resting with Oxygen] 06/15/18 04:00 06/15/18 08:00 06/15/18 10:05 Temperature 97.4 F L 97.3 F L Pulse Rate 72 74 Respiratory Rate 21 20 Blood Pressure 122/60 146/63 H Pulse Oximetry 95 98 98 Pulse Oximetry [Resting on Room Air] Pulse Oximetry [Resting with Oxygen] 06/15/18 10:34 06/15/18 13:30 06/15/18 15:37 Temperature Pulse Rate 73 76 Respiratory Rate Blood Pressure 120/85 Pulse Oximetry 96 Pulse Oximetry [Resting on Room Air] 86 L Pulse Oximetry [Resting with Oxygen] 98 06/15/18 15:45 06/15/18 16:00 Temperature 97.1 F L Pulse Rate 71 73 Respiratory Rate 20 Blood Pressure 126/62 Pulse Oximetry 96 Pulse Oximetry [Resting on Room Air] Pulse Oximetry [Resting with Oxygen] Intake & Output 06/14/18 06/15/18 06/15/18 18:59 06:59 18:59 Intake Total 830 / 830 360 / 360 947 / 947 Balance 830 / 830 360 / 360 947 / 947 Intake: IV 350 / 350 350 / 350 Azithromycin Inj 500 MG In NS 250 / 250 250 / 250 Inj 250 ML @ 250 mls/hr IV.SIG Q24H EMY Rx#:[id number] Rocephin Inj 1,000 MG In NS Inj 100 / 100 100 / 100 100 ML @ 200 mls/hr IV.SIG Q24H EMY Rx#:[id number] Oral 480 / 480 360 / 360 597 / 597 Other: # Voids 5 2 3 Date of Last Bowel Movement 06/13/18 # Bowel Movements 1 - Constitutional mild distress, obese - Routine HEENT Exam Head: Present: normocephalic, atraumatic - Routine Neck Exam Present: supple, full ROM. Absent: JVD, carotid bruit - Routine Respiratory Exam Present: decreased breath sounds, prolonged expiratory phase - Routine Cardiovascular Exam Present: RRR, S1, S2. Absent: murmur - Routine Abdominal Exam Present: soft, normoactive bowel sounds - Routine Skin Exam Present: dry, warm - Routine Neurological Exam Present: alert, oriented X3, CN II-XII intact Results 06/14/18 10:57 06/14/18 10:57 Cardiac Enzymes 06/14/18 06/14/18 06/15/18 Range/Units 16:57 22:12 04:05 Troponin I Less than 0.02 L Less than 0.02 L Less than 0.02 L (0.02-0.05) ng/mL CBC 06/14/18 Range/Units 10:57 WBC 8.0 (4.0-11.0) th/mm3 RBC 3.60 L (4.00-5.30) mil/mm3 Hgb 11.1 L (11.6-15.3) gm/dL Hct 34.4 L (35.0-46.0) % Plt Count 269 (150-450) th/mm3 Neut # (Auto) 7.0 (1.8-7.7) th/mm3 Lymph # (Auto) 0.5 L (1.0-4.8) th/mm3 [place] # (Auto) 0.5 (0.0-0.9) th/mm3 Eos # (Auto) 0.0 (0.0-0.4) th/mm3 Baso # (Auto) 0.0 (0.0-0.2) th/mm3 Comprehensive Metabolic Panel 06/14/18 Range/Units 10:57 Sodium 138 (136-145) meq/L Potassium 4.2 (3.5-5.1) meq/L Chloride 98 (98-107) meq/L Carbon Dioxide 33.4 H (21.0-32.0) meq/L BUN 17 (7-18) mg/dL Creatinine 0.96 (0.50-1.00) mg/dL Calcium 8.3 L (8.5-10.1) mg/dL Intake and Output 06/15/18 06/15/18 06/15/18 06:59 14:59 22:59 Intake Total 360 / 360 100 / 100 847 / 847 Balance 360 / 360 100 / 100 847 / 847 Intake: IV 100 / 100 250 / 250 Azithromycin Inj 500 MG In NS 250 / 250 Inj 250 ML @ 250 mls/hr IV.SIG Q24H EMY Rx#:[id number] Rocephin Inj 1,000 MG In NS Inj 100 / 100 100 ML @ 200 mls/hr IV.SIG Q24H EMY Rx#:[id number] Oral 360 / 360 597 / 597 Other: # Voids 2 3 Date of Last Bowel Movement 06/13/18 - Imaging and Cardiology Imaging: Impressions Myocardial Perfusion Scan Nuc Med 06/14/18 00:00 CONCLUSION: 1. No appreciable ischemia and slight reduction in ejection fraction. Assessment and Plan - Assessment (1) Angina pectoris Code(s): I20.9 - Angina pectoris, unspecified Status: Acute (2) Hypoxemia Code(s): R09.02 - Hypoxemia Status: Acute (3) Diabetes mellitus type 2 in obese Code(s): E11.69 - Type 2 diabetes mellitus with other specified complication; E66.9 - Obesity, unspecified Status: Chronic (4) Hyperlipidemia Code(s): E78.5 - Hyperlipidemia, unspecified Status: Acute (5) Hypertension Code(s): I10 - Essential (primary) hypertension Status: Chronic - Plan 73-year-old female with HTN, DM who was sent from PCPs office for hypoxia. 1. angina pectoris. Troponin negative. Echocardiogram June 11, 2018 showed EF of 60%. No significant valvular abnormality. Lexiscan myocardial perfusion stress test showed no evidence of ischemia. No further cardiac workup at this point. Encouraged patient to lose weight. She does have a moderate risk of ischemic heart disease, if chest pain worse or persistent, she might benefit for coronary angiogram. 2. Hypoxic, short of breath weeks minimal exertion. Patient being evaluated by toggle press folder and feeder. Patient being treated for asthma exacerbation and pneumonia 3. Symptoms and findings consistent with possible viral pneumonia. okay to discharge home from Cardiology standpoint. Follow up with [facility] material engineer in 1-2 weeks.
[2018-06-15] MEDS: Enoxaparin Inj 40 MG/0.4 ML Syringe SQ SCH (20:40)
--- NOTE | 2018-06-16 08:10 | P.DS ---
Date of admission: 06/10/18 Primary care physician: Dr Rusty Umaña Attending physician on discharge: Isaak Garcia Anticipated date of discharge: 06/16/18 Brief History from admission: 73 y/o female who went to her PCP's office yesterday for SOB and was sent to the ER due to hypoxia, Pulse oximetry in the office was reported to be 83%. According to the patient she has been doing well until the last 5 days when she started becoming more sob with exertion. Walking ,showering, any movement. She denies any chest pain, does have occasional chest tightness, She states she gets palpitations and these have been a little more frequent lasting several seconds. She never smoked but has a hx of asthma requiring singulair , albuterol and mcfp prednisone at one point. Currently she has not felt herself wheeze. She did not like the prednisone as it would eventually cause knee pain. She states aprox 10 yrs ago she suddenly did not need the medications so she stopped them. She even was undergoing allergy testing but this was stopped. She denies fever or chills. She has a slight cough which is chronic and not really any worse. She has chronic long standing problems with her sinuses for which she has used flonase for temporary relief. She will use vicks and steam to help open them up. She is a nose breather so when her sinuses flare up she has a more difficult time breathing. She will wake up at night sob but this is chronic and she states has always been this way. Her sinuses are acting up in particular now with pressure and she cannot breathe through her nose. She has developed a bit of sore throat in the last 2-3 days but no nasal congestion. Up until now she has been in her usual state of health. She does say for the last year or so her left foot and ankle will swell but she elevates her leg and it resolves. The only other event of significance has been that in May she flew to [place] for her mother . (the above history was recorded by Dr Alfaro who admitted her to the hospital and saw her for the first few day of her hospitalization. Patient update on day of discharge: Patient is medically stable at this time and has been cleared by pulmonary to go to a rehab facility. She will be going there on oxygen therapy and continue oral antibiotic therapy. She will be maintained on her steroids and inhaler as well as other routine medications. Her physical exam is stable also. DS: Diagnosis - Discharge Diagnosis (1) Community acquired pneumonia Status: Acute (2) Asthma with exacerbation Status: Acute (3) Diabetes mellitus type 2 in obese Status: Chronic (4) Hypoxemia Status: Acute (5) Pulmonary nodules Status: Acute (6) Nonsustained ventricular tachycardia Status: Resolved (7) Hyperlipidemia Status: Chronic (8) Hypertension Status: Chronic (9) Musculoskeletal chest pain Status: Resolved DS: Medications - Discharge Medications Prescriptions: budesonide-formoterol [Symbicort] 1 puff INH BID #1 g fluticasone 2 spray NASAL DAILY #1 g levofloxacin 750 mg PO DAILY #7 tab prednisone 20 mg PO DAILY #7 tab DS: Summary Hospital Course: Patient was initially seen by Dr. Alfaro and was begun on IV antibiotic therapy for probable pneumonia. She was put on oxygen therapy as well and steroids for possible asthma exacerbation. She was noted on admission to have a 7 beat run of nonsustained ventricular tachycardia and cardiology was consulted by Dr. Brown Randle. She was seen by cardiology who did not recommend any inpatient workup but did recommend an outpatient Lexiscan. She had no further episodes of V. tach on telemetry. She did continue to have hypoxia when her oxygen was lowered and for this reason a pulmonary consult was obtained and she was seen by Dr. Boyle. He recommended continuing current treatment that she was on and continue her on oxygen. He did recommend she have an outpatient sleep study to rule out sleep apnea. He has been recommended that she go to a rehab facility and she will be discharged there. She does qualify for oxygen therapy and is being maintained on 2 L of oxygen. I should note that she did have an incidental pulmonary nodules in the right lower lobe the largest measuring 7 mm in recommended she have a 3-month follow-up CT scan of the chest. I have made the patient aware of this and her need for follow-up on this with her primary care physician with rescheduling of a CT scan in [address] scan in the hospital also showed some scattered groundglass densities likely secondary to air trapping and also scattered peripheral parenchymal densities in the right lung that could be infectious or inflammatory for which she was put on antibiotic therapy for. She is going to be sent to the longterm on Levaquin 750 mg daily for 7 days and on prednisone for about 7 more days. Her discharge medications will be: Baby aspirin 81 mg daily Calcium 600 mg daily Vitamin B12 thousand micrograms daily Atorvastatin 20 mg daily Celebrex 200 mg daily Losartan 25 mg daily Metformin 1000 milligrams twice a day Metoprolol succinate extended release 50 mg daily Multivitamin 1 a day Westfall-3 fish oil 1 daily Omeprazole 40 mg daily Sertraline 25 mg twice a day Trazodone 50 mg at bedtime Budesonide/formoterol 160/4.51 puff twice a day Prednisone 20 mg 1 daily for 4 days then half a day tablet daily for 6 days Tylenol 650 mg 4 times a day as needed Fluticasone nasal spray 2 sprays daily to each nostril 2 L of oxygen continuously nasal cannula - Time Spent with Patient Total time spent providing and/or coordinating discharge services: 45 minutes Greater than 30 minutes - Quality: VTE Deep Vein Thrombosis/Pulmonary Embolism Present on Admission: No Exam Vital signs: Vital Signs 06/15/18 08:00 06/15/18 10:05 06/15/18 10:34 Temperature 97.3 F L Pulse Rate 74 73 Respiratory Rate 20 Blood Pressure 146/63 H 120/85 Pulse Oximetry 98 98 96 Pulse Oximetry [Resting on Room Air] Pulse Oximetry [Resting with Oxygen] 06/15/18 13:30 06/15/18 15:37 06/15/18 15:45 Temperature Pulse Rate 76 71 Respiratory Rate Blood Pressure Pulse Oximetry Pulse Oximetry [Resting on Room Air] 86 L Pulse Oximetry [Resting with Oxygen] 98 06/15/18 16:00 06/15/18 20:00 06/15/18 22:11 Temperature 97.1 F L 94.7 F L Pulse Rate 73 71 Respiratory Rate 20 16 Blood Pressure 126/62 115/61 Pulse Oximetry 96 93 L 96 Pulse Oximetry [Resting on Room Air] Pulse Oximetry [Resting with Oxygen] 06/16/18 00:00 06/16/18 04:00 Temperature 95.8 F L 96.8 F L Pulse Rate 67 80 Respiratory Rate 18 18 Blood Pressure 120/80 118/60 Pulse Oximetry 96 96 Pulse Oximetry [Resting on Room Air] Pulse Oximetry [Resting with Oxygen] Intake & Output 06/15/18 06/16/18 06/16/18 18:59 06:59 18:59 Intake Total 947 / 947 90 / 90 Output Total 850 / 850 Balance 947 / 947 -760 / -760 Weight 123.6 kg Intake: IV 350 / 350 Azithromycin Inj 500 MG In NS 250 / 250 Inj 250 ML @ 250 mls/hr IV.SIG Q24H [facility] Rx#:[id number] Rocephin Inj 1,000 MG In NS Inj 100 / 100 100 ML @ 200 mls/hr IV.SIG Q24H EMY Rx#:[id number] Oral 597 / 597 90 / 90 Output: Urine 850 / 850 Other: # Voids 3 Date of Last Bowel Movement 06/13/18 Narrative: Physical exam: Obese black female in no distress. HEENT: Pupils equal, mouth negative Neck: No JVD Heart: RRR with no murmurs Lungs: No obvious wheezing. Chest: She has now only minimal tenderness of the mid anterior sternal and surrounding regions of the anterior chest suggestive of chest wall pain. Abdomen: Soft, nontender, no masses Extremities: No edema, no calf tenderness Neuro: normal motor exam, Results Procedures completed during hospitalization: None Labs on day of discharge: Labs from last 24 hours 06/16/18 06/15/18 06/15/18 07:39 20:40 16:34 POC Glucose 116 H 142 H 150 H 06/15/18 06/15/18 10:37 07:49 POC Glucose 116 H 111 H - Impressions ITS Impressions Chest X-Ray 06/10/18 16:24 CONCLUSION: Apical lordotic examination with apparent mild cardiomegaly and no definite pulmonary edema. Chest CTA 06/10/18 17:57 CONCLUSION: 1. Scattered groundglass densities likely air trapping. 2. Scattered peripheral parenchymal densities in the right lung could be infectious or inflammatory. 3. No evidence for pulmonary embolism. 4. Mild prominence of the main pulmonary trunk suggests a degree of pulmonary hypertension. 5. Subcentimeter nodules the largest right lower lobe measures 7 mm. Follow-up CT chest in 3 months recommended for stability. Sinuses CT 06/11/18 00:00 CONCLUSION: 1. No significant sinus disease Myocardial Perfusion Scan Nuc Med 06/14/18 00:00 CONCLUSION: 1. No appreciable ischemia and slight reduction in ejection fraction. Discharge Plan - Discharge Disposition Patient Disposition: Discharge to SNF - Discharge Condition Condition: Stable - Discharge Order Discharge Orders: Discharge Order (Routine); Ordered 06/16/18 Ordered By: Isaak Garcia ED Use Only Admit Order (Routine); Ordered 06/10/18 Ordered By: Mack Goldstein - Discharge Details Anticipated Discharge Date: 06/16/18 Discharge Comment: Discharge to longterm with physical therapy and on oxygen. Followup with Dr Boyle for a sleep study to rule out sleep apnea. She will need a repeat noncontrast CT scan of the thorax in 3 months. I discussed this also with the patient. - Physicians Team Primary Care Provider: Vitor Schultz Attending Provider: Darlene Garner Other Providers: Theo Ochoa DO ; Tamar Boyle MD ; [facility]
[2018-06-16] MEDS ORDERED: levoFLOXacin 750 MG Tablet PO SCH (09:00)
[2018-06-16] MEDS: Insulin NovoLOG Aspart Correctional Sugar Inj SQ SCH (09:12)
--- NOTE | 2018-06-16 09:33 | P.PNADD ---
Addendum to Inpatient Note Additional information: This is an addendum to the discharge summary I dictated earlier today. I failed to mention that on 06-14-18 she experienced some chest pain in her anterior chest. EKGs and serial cardiac enzymes were done which were negative. She had been seen earlier in the hospital by cardiology so the covering scale adjuster was called by the nurse and Dr. Azar ordered nitroglycerin patch. A Lexiscan had already been ordered by me to follow-up on her previous nonsustained ventricular tachycardia earlier in the hospital. It was subsequently completed on 06-15-18 and showed no ischemia. When I went in to see her on the morning of 06-15-18 she was complaining of some chest pain across her midsternal and surrounding chest area. On exam she had mild to moderate tenderness to palpation of that area of her chest so it was felt that her chest pain was definitely musculoskeletal in origin. Her Lexiscan came back negative later in the day which confirmed this as well. She did have a 2D echocardiogram done while in the hospital on 06-11-18 which showed an ejection fraction of 50-55% and mild LVH but no significant valvular disease. The Nitropatch that she was on was subsequently discontinued prior to going to the retirement.
[2018-06-16] MEDS: Senna/Docusate Sodium 8.6/50 MG Tablet PO SCH (09:58)
[2018-06-16] MEDS: Pantoprazole Sodium 20 MG DR Tablet PO SCH (09:59)
[2018-06-16] MEDS: Sertraline 50 MG Tablet PO SCH (09:59)
[2018-06-16] MEDS: Ascorbic Acid 500 MG Tablet PO SCH (09:59)
[2018-06-16] MEDS: predniSONE 20 MG Tablet PO SCH (09:59)
[2018-06-16] MEDS: Budesonide-Formoterol 160/4.5 MCG 6 GM Inhaler INH SCH (10:00)
[2018-06-16] MEDS: Acetaminophen 325 MG Tablet PO PRN (10:09)
== END 2018-06-16 12:07 ==
LOC: PHED 16:06 → INTOOBSV 19:50 → PHEDA 19:50 → PH3 22:01
PROVIDERS: ADMIT Legal Medicine; ATTEND Legal Medicine